=== PATIENT | female | born 1930 ===

== ENCOUNTER 2017-02-27 13:18 | Inpatient (IN) | payer MEDICARE ==
[2017-02-27] MEDS ORDERED: Sodium Chloride 0.9% 500 ML IV ONE ×2 (14:25→15:32)
[2017-02-27 14:35] LABS: VENOUS BLOOD GAS BASE EXCESS -7.3 mmol/L (0.0-2.0); VENOUS BLOOD GAS PCO2 35 mmHg (40-60); VENOUS BLOOD PH 7.32 (7.32-7.43)
--- NOTE | 2017-02-27 14:37 | RAD ---
PROCEDURE: CHEST RADIOGRAPH, 1 VIEW HISTORY: hyperglycemia, weakness COMPARISON: None available. FINDINGS: LUNGS: The lungs are clear. PLEURA: No pneumothorax or pleural fluid seen. CARDIOVASCULAR: Normal. OSSEOUS STRUCTURES: Within normal limits for the patient's age. VISUALIZED UPPER ABDOMEN: Normal. OTHER FINDINGS: None. IMPRESSION: No active pulmonary disease.
[2017-02-27 14:39] LABS: CHLORIDE 94 mmol/L (98-107); SODIUM 131 mmol/L (132-148)
[2017-02-27 14:41] LABS: BILIRUBIN,TOTAL 0.8 mg/dL (0.2-1.3); CARBON DIOXIDE 25 mmol/L (22-30); GFR AFRICAN-AMERICAN 43
[2017-02-27 14:42] LABS: ALKALINE PHOSPHATASE 100 U/L (38-126); ALT/SGPT 28 U/L (9-52); AST/SGOT 28 U/L (14-36); BLOOD UREA NITROGEN 17 mg/dL (7-17); CALCIUM 9.3 mg/dl (8.6-10.4); TOTAL PROTEIN 6.9 g/dL (6.3-8.3)
[2017-02-27 14:52] LABS: POTASSIUM 4.9 mmol/L (3.6-5.2)
[2017-02-27] MEDS ORDERED: (Novolin R) Insulin Human Regular 100 units/ml vial IV ONE (15:00)
[2017-02-27 15:02] LABS: GLUCOSE,RANDOM 619 mg/dL (65-105)
[2017-02-27] MEDS ORDERED: (Novolin R) Insulin Human Regular 100 units/ml vial ONE ×3 (15:06→23:52)
[2017-02-27 15:18] LABS: BASO % 0.7 % (0.0-2.0); EOS # 0.1 K/uL (0.0-0.7); EOS % 1.2 % (0.0-4.0); HEMATOCRIT 34.4 % (34.0-47.0); LYMPH # 1.2 K/uL (1.0-4.3); LYMPH % 18.2 % (20.0-40.0); MEAN CELL VOLUME 97.1 fL (81.0-99.0); MEAN CORPUSCULAR HEMOGLOBIN 32.2 pg (27.0-31.0); MEAN CORPUSCULAR HGB CONC 33.1 g/dL (33.0-37.0); MONO # 0.5 K/uL (0.0-0.8); MONO % 8.4 % (0.0-10.0); RED CELL DISTRIBUTION WIDTH 13.9 % (11.5-14.5); WHITE BLOOD COUNT 6.5 K/uL (4.8-10.8)
--- NOTE | 2017-02-27 15:39 | C.PDOC ---
History Of Present Illness 86 yr old female sent from Dr. Bhat's office for elevated blood sugar (> 500). Patient is insulin dependent diabetes, compliant with medication. Patient admits to polyuria. She denies chest pain, SOB, palpitations, fever, cough, abdominal pain, nausea, vomiting, abdominal pain, dysuria, extremity weakness, sensory changes, facial droop, slurred speech, visual changes. Time Seen by Provider: 02/27/17 13:46 Chief Complaint (Nursing): Weakness/Neurological Deficit History Per: Patient History/Exam Limitations: no limitations Fall Associated With With Symptoms: No Past Medical History Reviewed: Historical Data, Nursing Documentation, Vital Signs Vital Signs: Last Vital Signs Temp 97.9 F 03/06/17 07:00 Pulse 71 03/06/17 07:00 Resp 18 03/06/17 07:00 BP 165/67 H 03/06/17 11:16 Pulse Ox 98 03/06/17 07:00 - Medical History PMH: Diabetes, HTN Family History: States: No Known Family Hx - Social History Hx Alcohol Use: No Hx Substance Use: No - Immunization History Hx Tetanus Toxoid Vaccination: No Hx Influenza Vaccination: No Hx Pneumococcal Vaccination: No Review Of Systems Except As Marked, All Systems Reviewed And Found Negative. Constitutional: Negative for: Fever Cardiovascular: Negative for: Chest Pain, Palpitations Respiratory: Negative for: Cough, Shortness of Breath Gastrointestinal: Negative for: Nausea, Vomiting, Abdominal Pain Genitourinary: Positive for: Other ((+) Polyuria ). Negative for: Dysuria Neurological: Negative for: Weakness, Numbness Physical Exam - Physical Exam Appears: Well, Non-toxic, No Acute Distress Skin: Warm, Dry, No Rash Head: Normacephalic Eye(s): bilateral: Normal Inspection, PERRL, EOMI Oral Mucosa: Moist Cardiovascular: Rhythm Regular Respiratory: Normal Breath Sounds, No Rales, No Rhonchi, No Wheezing Gastrointestinal/Abdominal: Normal Exam, Bowel Sounds, Soft, No Tenderness Extremity: Normal ROM, No Pedal Edema, No Calf Tenderness, No Swelling Neurological/Psych: Oriented x3, Normal Speech, Normal Cognition, Normal Cranial Nerves, No Cerebellar Signs, Normal Motor, Normal Sensation ED Course And Treatment - Laboratory Results Result Diagrams: 03/05/17 09:19 03/05/17 07:34 ECG: Interpreted By Me, Viewed By Me (sinus rhythm 69 bpm, normal axis, no acute ST/T wave changes) ECG Interpretation: Normal O2 Sat by Pulse Oximetry: 100 (RA ) Pulse Ox Interpretation: Normal - Radiology CXR: Viewed By Me, Read By Radiologist CXR Interpretation: Yes: No Acute Disease Progress Note: PLAN: Blood work, CXR, EKG, Urinalysis ordered and reviewed. Patient given IV Ns bolus, IV insulin, PO Norvasc. - Physician Consult Information Physician Contacted: Marc Song Outcome Of Conversation: Discussed patient with Dr. Song, he agrees with admission for hyperglycemia, hypertension, elevated creatinine. Disposition - Disposition Disposition: HOSPITALIZED Disposition Time: 16:37 Condition: STABLE - Clinical Impression Clinical Impression: Creatinine elevation, Hyperglycemia, Dehydration, Hypertension - Scribe Statement The provider has reviewed the documentation as recorded by the Sukhwinder Baez Provider Attestation: All medical record entries made by the Scribe were at my direction and personally dictated by me. I have reviewed the chart and agree that the record accurately reflects my personal performance of the history, physical exam, medical decision making, and the department course for this patient. I have also personally directed, reviewed, and agree with the discharge instructions and disposition. Decision To Admit - Pt Status Changed To: Hospital Disposition Of: Inpatient - Admit Certification Admit to Inpatient:: After my assessment, the patient will require hospitalization for at least two midnights. This is because of the severity of symptoms shown, intensity of services needed, and/or the medical risk in this patient being treated as an outpatient. - InPatient: Physician Admission Certification: I certify that this patient requires 2 or more midnights of care for the following reason:: see notes - . Bed Request Type: Telemetry Admitting Physician: Marc Song Patient Diagnosis: Hyperglycemia, Dehydration, Creatinine elevation
[2017-02-27 15:41] LABS: RBC URINE < 1 /hpf (0-3); URINE BILIRUBIN NEGATIVE (NEGATIVE); URINE BLOOD NEGATIVE (NEGATIVE); URINE COLOR Colorless (YELLOW); URINE GLUCOSE (UA) 3+ mg/dL (Normal); URINE KETONE NEGATIVE (NEGATIVE); URINE LEUKOCYTE ESTERASE NEG Leu/uL (Negative); URINE PROTEIN 1+ mg/dL (NEGATIVE); URINE UROBILINOGEN NORMAL mg/dL (0.2-1.0); WBC URINE 2 /hpf (0-5)
--- NOTE | 2017-02-27 15:47 | C.PDOC ---
Time Seen by Provider: 02/27/17 13:46 Chief Complaint (Nursing): Weakness/Neurological Deficit Past Medical History Vital Signs: Last Vital Signs Temp 98.3 F 02/27/17 13:34 Pulse 74 02/27/17 13:34 Resp 20 02/27/17 13:34 BP 201/81 H 02/27/17 15:13 Pulse Ox 100 02/27/17 13:34 - Medical History PMH: HTN - Social History Hx Alcohol Use: No Hx Substance Use: No - Immunization History Hx Tetanus Toxoid Vaccination: No Hx Influenza Vaccination: No Hx Pneumococcal Vaccination: No ED Course And Treatment - Laboratory Results Result Diagrams: 02/27/17 15:11 02/27/17 14:24 O2 Sat by Pulse Oximetry: 100 Disposition - Disposition Forms: [employer] (Malawian)
[2017-02-27] MEDS ORDERED: (Novolin R) Insulin Human Regular 100 units/ml vial IV STA (16:01)
--- NOTE | 2017-02-27 20:51 | CP.PCM.HP ---
History of Present Illness - History of Present Illness History of Present Illness: CC: bs > 500 with weakness HPI: Pt is an 86-yo female who was referred to me by her health policy manager, Dr. Jeane Bhat, for possible admission after a visit at the office showed BS > 500 and pt was feeling slightly weak. Pt speaks Bengali mainly, and was using insulin at home for her DM. Pt was unaccompanied by family and took the bus to Dr. Bhat's office and pt was dropped off by her doctor at [facility] ER shortly after lunch. Later in the afternoon, I was called by ER doctor for endorsement of patient and admitting orders. When pt was evaluated by me this evening, pt had SBP in the 160s - 170s. After initially declining, pt's BS started climbing again after her regular diet dinner. Further admitting order given and all possible steps taken to prevent exacerbation of pt's medical problems. i Present on Admission - Present on Admission Any Indicators Present on Admission: No History of DVT/PE: No History of Uncontrolled Diabetes: Yes Urinary Catheter: No Decubitus Ulcer Present: No Review of Systems - Review of Systems Systems not reviewed;Unavailable: Unstable Vital Signs - Constitutional Constitutional: Anorexia, Daytime Sleepiness, Weakness Past Patient History - Infectious Disease Hx of Infectious Diseases: None - Tetanus Immunizations Tetanus Immunization: Unknown - Past Medical History & Family History Past Medical History?: Yes - Past Social History Smoking Status: Never Smoked - CARDIAC Hx Hypertension: Yes - ENDOCRINE/METABOLIC Hx Diabetes Mellitus Type 1: Yes - PSYCHIATRIC Hx Substance Use: No Meds Allergies/Adverse Reactions: Allergies Allergy/AdvReac Type Severity Reaction Status Date / Time No Known Allergies Allergy Unverified 02/27/17 13:39 Physical Exam - Constitutional Appears: No Acute Distress, Confused - Head Exam Head Exam: ATRAUMATIC, NORMAL INSPECTION, NORMOCEPHALIC - Eye Exam Eye Exam: Normal appearance Pupil Exam: NORMAL ACCOMODATION - ENT Exam ENT Exam: Mucous Membranes Dry - Neck Exam Neck exam: Positive for: Normal Inspection - Respiratory Exam Respiratory Exam: Clear to Auscultation Bilateral, NORMAL BREATHING PATTERN - Cardiovascular Exam Cardiovascular Exam: REGULAR RHYTHM - GI/Abdominal Exam GI & Abdominal Exam: Normal Bowel Sounds - Rectal Exam Rectal Exam: Deferred - Extremities Exam Extremities exam: Positive for: calf tenderness - Neurological Exam Neurological exam: Abnormal Gait (slightly unsteady), CN II-XII Intact, Oriented x3 (oriented to person and place only) - Psychiatric Exam Psychiatric exam: Manic (vs sundowning; ? dementia) - Skin Skin Exam: Dry, Intact, Normal Color, Warm Results - Vital Signs Recent Vital Signs: Last Vital Signs Temp 97.9 F 02/27/17 17:32 Pulse 72 02/27/17 17:32 Resp 18 02/27/17 17:32 BP 167/71 H 02/27/17 17:32 Pulse Ox 98 02/27/17 17:32 - Labs Result Diagrams: 02/27/17 15:11 02/27/17 21:02 Labs: Laboratory Results - last 24 hr 02/27/17 17:29 POC Glucose (mg/dL) 274 H - EKG Data EKG Interpreted by: ER Physician Rate: Normal Assessment & Plan (1) Diabetes type 2, uncontrolled Assessment and Plan: re-start pt's insulin and consult Endo as necessary museum educator to bedside as well as dietitian referral Status: Acute (2) Malignant hypertension Assessment and Plan: start on MAK/ARB IV and titrate to oral dosing Status: Acute (3) Elevated serum creatinine Assessment and Plan: monitor renal function odalis after ARB started Status: Acute (4) SunDown syndrome Assessment and Plan: reported by evening nursing staff as confusion and wandering. 1 on 1 obtained for pt safety Status: Acute Decision To Admit - Pt Status Changed To: Hospital Disposition Of: Inpatient - Admit Certification Admit to Inpatient:: After my assessment, the patient will require hospitalization for at least two midnights. This is because of the severity of symptoms shown, intensity of services needed, and/or the medical risk in this patient being treated as an outpatient. - InPatient: Physician Admission Certification:: Patient found to have very elevated BS at health policy manager's office with beginning signs of end-organ dysfunction. Pt sent to ED for evaluation and pt's diabetes was very uncontrolled and BP was at stroke levels. Pt admitted for closer monitoring, meds adjustment, diabetic and bp teaching, to prevent any long-term morbidity. - . Bed Request Type: Telemetry Admitting Physician: Marc Song
[2017-02-27 21:21] LABS: POTASSIUM 3.9 mmol/L (3.6-5.2)
[2017-02-27 21:23] LABS: ALB/GLOB RATIO 1.1 (1.0-2.1); BILIRUBIN,TOTAL 0.5 mg/dL (0.2-1.3); TOTAL PROTEIN 6.1 g/dL (6.3-8.3)
[2017-02-27 21:24] LABS: CALCIUM 8.7 mg/dl (8.6-10.4); MAGNESIUM 1.7 mg/dL (1.6-2.3)
[2017-02-27] MEDS ORDERED: Insulin Detemir 100 units/ml Vial (Levemir) SC STA (21:31)
[2017-02-27] MEDS ORDERED: Insulin Detemir 100 units/ml Vial (Levemir) SC ONE (21:39)
[2017-02-27] MEDS ORDERED: Enalaprilat 2.5 MG/2 ML ONE (23:52)
[2017-02-27] MEDS: Enalaprilat 2.5 MG/2 ML IV SCH (23:53)
[2017-02-27] MEDS: (Novolin R) Insulin Human Regular 100 units/ml vial SC SCH (23:54)
[2017-02-28] MEDS: Enalaprilat 2.5 MG/2 ML IV SCH (06:23)
[2017-02-28] MEDS: (Novolin R) Insulin Human Regular 100 units/ml vial SC SCH ×4 (08:56→22:50)
[2017-02-28] MEDS ORDERED: (Novolin 70/30) NPH/Regular 70/30 Units/ml 10 ml vial SC SCH (16:30)
[2017-02-28] MEDS ORDERED: (Lantus) Insulin Glargine, Recombinant SC SCH (22:00)
--- NOTE | 2017-02-28 23:43 | CP.PCM.PN ---
Subjective - Date & Time of Evaluation Date of Evaluation: 02/28/17 Time of Evaluation: 20:25 - Subjective Subjective: Pt's BS monitored overnight and Endo consult obtained this AM with further refinements in pt's insulin dosing. Clinically, pt's BS had been coming down with her numbers improved from admission. Pt's baseline can swing from cooperative to bored and agitated, though she could be convinced to do certain things when cajoled into it. Labs ordered for AM by Endo. Objective - Vital Signs/Intake and Output Vital Signs (last 24 hours): Temp Pulse Resp BP Pulse Ox 97.9 F 80 23 157/67 H 87 L 02/28/17 20:00 02/28/17 20:44 02/28/17 04:00 02/28/17 20:44 02/28/17 20:44 Intake and Output: 02/28/17 03/01/17 18:59 06:59 Intake Total 1440 Balance 1440 - Medications Medications: Current Medications Aspirin (Aspirin Chewable) 81 mg PO DAILY [facility] Last Admin: 02/28/17 09:58 Dose: 81 mg Enalaprilat (Vasotec) 2.5 mg IV Q8 [facility] Last Admin: 02/28/17 06:23 Dose: Not Given Heparin Sodium (Porcine) (Heparin) 5,000 units SC Q12 [facility] Last Admin: 02/28/17 22:54 Dose: 5,000 units Insulin Glargine (Lantus) 14 unit SC HS [facility] Last Admin: 02/28/17 22:54 Dose: 14 units Insulin Human Isoph/Insulin Regular (Novolin 70/30 (70/30 Units/Ml) 10 Ml) 24 units SC ACB FALGUNI Insulin Human Isoph/Insulin Regular (Novolin 70/30 (70/30 Units/Ml) 10 Ml) 16 units SC ACD [facility] Last Admin: 02/28/17 16:55 Dose: 16 units Insulin Human Regular (Novolin R) 0 unit SC ACHS [facility] PRN Reason: Protocol Last Admin: 02/28/17 22:50 Dose: Not Given Losartan Potassium (Cozaar) 50 mg PO DAILY [facility] Last Admin: 02/28/17 09:58 Dose: 50 mg Losartan Potassium (Cozaar) 25 mg PO DAILY [facility] Last Admin: 02/28/17 20:30 Dose: 25 mg Pneumococcal Polyvalent Vaccine (Pneumovax 23 Vaccine) 0.5 ml IM .ONCE ONE Stop: 03/02/17 10:01 - Labs Labs: 02/27/17 21:02 - Constitutional Appears: No Acute Distress - Head Exam Head Exam: NORMAL INSPECTION, NORMOCEPHALIC - Eye Exam Eye Exam: Normal appearance Pupil Exam: NORMAL ACCOMODATION - ENT Exam ENT Exam: Mucous Membranes Moist - Neck Exam Neck Exam: Full ROM, Normal Inspection - Respiratory Exam Respiratory Exam: Clear to Ausculation Bilateral, NORMAL BREATHING PATTERN - Cardiovascular Exam Cardiovascular Exam: REGULAR RHYTHM - GI/Abdominal Exam GI & Abdominal Exam: Normal Bowel Sounds - Rectal Exam Rectal Exam: Deferred - Extremities Exam Extremities Exam: Normal Inspection - Back Exam Back Exam: NORMAL INSPECTION - Neurological Exam Neurological Exam: Normal Gait, Oriented x3 (oriented to person and place only) Neuro motor strength exam: Left Upper Extremity: 4, Right Upper Extremity: 4, Left Lower Extremity: 3, Right Lower Extremity: 3 - Psychiatric Exam Psychiatric exam: Normal Affect, Normal Mood - Skin Skin Exam: Dry, Intact, Normal Color, Warm Assessment and Plan (1) Diabetes type 2, uncontrolled Assessment & Plan: continue titration of insullin coupled with diabetic education Status: Acute (2) Malignant hypertension Assessment & Plan: BP much iimproved and appears to be staying within tolerable limits although not ideal. Suspect pt is used to having very high pressures and immediate decrease of BP may be more detrimental to pt than a gradual decline. Will continue to follow. Status: Acute (3) Elevated serum creatinine Assessment & Plan: for re-evaluation in AM Status: Acute (4) SunDown syndrome Assessment & Plan: continue 1-1 as necessary Status: Acute
--- NOTE | 2017-03-01 01:06 | CON ---
ENDOCRINOLOGY CONSULT DATE: 02/28/2017 LOCATION: In ICU, room 9. HISTORY OF PRESENT ILLNESS: This is an 86-year-old female with known history of type 2 insulin-requiring diabetes, presented to my office yesterday for a routine visit and was found to have glucose levels over 500 by the glucose meter in the office and collaborated by a lab glucose report of 626 mg/dL. She also admitted to marked hypersomnolence and progressive dizziness and lightheadedness with lower extremity weakness and thus was strongly advised for urgent admission to the hospital. Since she had no access to transportation, I personally dropped off the patient to [facility] Emergency Room for evaluation and eventual management. She is on a combination of Humulin regular insulin given as 20 units b.i.d. with food, NPH given as 30 units every morning at bedtime. PAST MEDICAL HISTORY: As mentioned, history of type 2 insulin-requiring diabetes with the above-mentioned regimen, history of hypertension and dyslipidemia. Apparently, the patient was on two kinds of hypertension medications, but she has stopped taking the medications for unknown reasons. History of hypothyroidism, currently on levothyroxine given as 150 mcg daily but also admits to very poor adherence and compliance. History of generalized osteoporosis and has been receiving Prolia injections at 60 mg every 6 months as given. FAMILY HISTORY: Positive for hypertension and diabetes. SOCIAL HISTORY: Patient is a and at this time lives alone. They have no children, but she has nephews and nieces and also brothers in [place]. She has a close friend living in the same apartment complex building. REVIEW OF SYSTEMS: As mentioned above, admits to generalized body weakness with easy fatigability and tiredness and suboptimal energy level, also admits to increasing hypersomnolence, and this was witnessed by her apartment friend who said that she had been sleeping over 12 hours on a day to day basis. Also admits to progressive dizziness and lightheadedness, worse on the day of admission. No chest pain, palpitations or PNDs. Her oral intake has been variable with nausea, dyspepsia and vague upper abdominal pain. Also admits to marked polyuria, nocturia and polydipsia and about a 5-pound or so weight loss. Also has occasional constipation as noted. PHYSICAL EXAMINATION GENERAL: This is female in no apparent distress. VITAL SIGNS: Blood pressure 170/80, pulse of 70 beets per minute and regular, temperature 98, respirations 20. Height is 4 feet 11 inches and weight is 130 pounds. HEENT: Head is normocephalic. Eyes anicteric with pink conjunctivae. Funduscopy not possible at this time. Ears, nose, and throat otherwise normal. NECK: Supple. Thyroid gland is normal size. No carotid bruits or cervical adenopathy. CARDIOPULMONARY: Adynamic precordium. S1 and S2 are rapid and regular. LUNGS: Shows scattered rhonchi. ABDOMEN: Flat and soft with positive bowel sounds. EXTREMITIES: No peripheral edema. Pulses are +2 bilaterally. LABORATORY DATA: Initial chemistry showed a BUN of 17, sodium 131, potassium 4.9, chloride 94, CO2 of 25, glucose 619, and creatinine 1.4. Glucose level since admission have ranged from 311 to 432 and over 500 mg/dL. ASSESSMENT: This is an 86-year-old female with uncontrolled and decompensated type 2 insulin-requiring diabetes with marked hyperglycemic accelerations and presenting here with hyperosmolar hyperglycemic state and dehydration with spurious hypometria. There is also a significant factor of early senile dementia with increased lapses of forgetfulness and memory loss and the possibility of not being able to give her insulin dose regimen on a day to day basis is clearly of question at this time and may be a contributing factor to the recent hyperglycemic accelerations. PLAN: Plan of management is discussed with primary physician and also the patient at bedside. We will initiate a different kind of insulin regimen since her insurance company has only covered the old conventional regular and NPH insulin till the present time. However, at this time, we will empirically start her on a combination of a pre-mixed insulin regimen with basal insulin regimen as ordered. We will start her with Novolin 70/30 which is actually cheaper and more affordable at the dose of 24 units a.c. breakfast and 16 units a.c. dinner to start today. We will also add Lantus as basal insulin overnight to be given as 14 units subcu at bedtime daily as ordered. We will titrate incrementally as indicated to optimize metabolic control. We will go ahead with public health social worker referral and also for the safety of discharge with apparent increasing senile dementia as provided. We will obtain a hemoglobin A1c to glycemic control and repeat the thyroid studies and adjust the dose regimen accordingly. We will also obtain serial chemistries and supplement accordingly as needed and continue the IV hydration as ordered at this time. We will follow and advise accordingly. Haley Bhat MD
[2017-03-01] MEDS: Rosuvastatin Calcium 2.5 mg Tab PO SCH ×2 (02:30→22:00)
--- NOTE | 2017-03-01 05:10 | CON ---
DATE: 02/28/2017 CHIEF COMPLAINT/REASON FOR CONSULTATION: The patient was referred by Dr. Song for evaluation of decisional capacity as this patient has periods of confusion. The patient is admitted here for uncontrolled diabetes and periods of confusion, but when seen today, she was doing much better. Coherent and responding to question. HISTORY OF PRESENT ILLNESS: The patient is an 86-year-old female of descent and seen by Prepleater Dr. Cardona for elevated blood sugar greater than 500. The patient has history of insulin-dependent diabetes and is compliant with the medication. The patient was admitted here for uncontrolled diabetes and periods of confusion. Today, she is 1:1 watch for safety, but her mental status seems to be much better. Her blood sugar is now improved, around 257. Her Hgb A1c is 12.4. The patient states that she lives by herself and she has no homemaker at home. She has 3 children, but they are in [place] and the other one is in [place]. PAST MEDICAL HISTORY: Denies any medical history as stated. History of diabetes, hypertension. DRUG/ALCOHOL HISTORY: Denies. ALLERGIES: THE PATIENT HAS NO KNOWN ALLERGIES. 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 The patient lives by herself. MEDICATION: Losartan, aspirin, Lantus insulin, Novolin, Pneumovax, Vasotec. PHYSICAL EXAMINATION VITAL SIGNS: Temperature is 97.9, pulse rate is 79, blood pressure is 164/65, respirations 23, and oxygen saturations is 97%. REVIEW OF SYSTEMS: GENERAL: The patient is alert and oriented x3 and 1:1 watch. Doing much better and states she is not crazy._. SKIN: No diaphoresis. HEENT: No headache. No dizziness. NECK: Supple. RESPIRATORY: No dyspnea. CARDIOVASCULAR: No chest pain. GASTROINTESTINAL: She is eating well. EXTREMITIES: The patient move extremities. No tremors. MUSCULOSKELETAL: Feels weak. NEUROLOGIC: Alert and oriented x3 with some periods of confusion, but resolving. GENITOURINARY: No dysuria. MENTAL STATUS EXAMINATION: Elderly female of descent, oriented x3. Speech is spontaneous. Conversing in Belarusian. Affect is reactive. Mood is dysphoric. Thought process is coherent. Thought content,no psychosis. No suicidal or homicidal ideation. I did ask the patient if she wants some home medicare service at her home and she states she will try to get one, but patient needs to apply for Medicaid as patient saba not have Medicaid. No paranoia and no hallucination, or suicidal ideation. Attention and memory seems to be improving. Insight and judgment improving. Impulse control is fair at this time IMPRESSION: Delirium, metabolic encephalopathy secondary to uncontrolled diabetes. PLAN AND RECOMMENDATION: The patient seen, medications reviewed, and continue present management. We will hold up any psychiatry medications for now. We will her monitor blood sugar. The patient at this time her mental status is improving. The patient still has decisional capacity to make decisions for her medical as well as financial care. This will be good if we involve the children and I also the family can assist her to get the Medicaid to get some home care services at home. The patient needs to monitored especially that if her blood sugars are uncontrolled, it can cause some confusion as side effect especially with a very liable blood sugar status. Dereck Ford MD MTDD
[2017-03-01] MEDS ORDERED: Enalaprilat 2.5 MG/2 ML IV ONE (05:12)
[2017-03-01 07:09] LABS: ALB/GLOB RATIO 1.1 (1.0-2.1); BILIRUBIN,TOTAL 0.3 mg/dL (0.2-1.3); CALCIUM 9.3 mg/dl (8.6-10.4); POTASSIUM 3.9 mmol/L (3.6-5.2)
[2017-03-01 07:24] LABS: T4 4.92 ug/dL (5.5-11.0)
[2017-03-01] MEDS ORDERED: (Novolin 70/30) NPH/Regular 70/30 Units/ml 10 ml vial SC SCH (07:30)
[2017-03-01] MEDS: (Novolin R) Insulin Human Regular 100 units/ml vial SC SCH ×4 (08:57→22:00)
[2017-03-01 08:59] LABS: THYROID STIMULATING HORMONE 10.6 mIU/L (0.46-4.68)
--- NOTE | 2017-03-01 11:53 | CP.PCM.PN ---
Subjective - Date & Time of Evaluation Date of Evaluation: 03/01/17 Time of Evaluation: 11:47 - Subjective Subjective: Pt is still very unsteady on her feet, despite improving clinical picture. Pt's BP is still running high and with a diabetic diet, pt's BS this AM was in the 200s. Discussed pt with nurse on duty today and says that 1-1 watch good for pt as she will likely fall. Pt also has episodes of confusion and I doubt that she will be able to handle the complexity an insulin regimen without supervision from relatives. Objective - Vital Signs/Intake and Output Vital Signs (last 24 hours): Temp Pulse Resp BP Pulse Ox 98.7 F 67 15 156/65 H 97 03/01/17 08:00 03/01/17 08:08 03/01/17 08:08 03/01/17 08:08 03/01/17 08:08 Intake and Output: 03/01/17 03/01/17 06:59 18:59 Intake Total 400 Output Total 300 Balance 100 - Medications Medications: Current Medications Aspirin (Aspirin Chewable) 81 mg PO DAILY [facility] Last Admin: 03/01/17 09:34 Dose: 81 mg Heparin Sodium (Porcine) (Heparin) 5,000 units SC Q12 [facility] Last Admin: 03/01/17 09:35 Dose: 5,000 units Insulin Glargine (Lantus) 14 unit SC HS [facility] Last Admin: 02/28/17 22:54 Dose: 14 units Insulin Human Isoph/Insulin Regular (Novolin 70/30 (70/30 Units/Ml) 10 Ml) 24 units SC ACB [facility] Last Admin: 03/01/17 09:05 Dose: 24 units Insulin Human Isoph/Insulin Regular (Novolin 70/30 (70/30 Units/Ml) 10 Ml) 16 units SC ACD [facility] Last Admin: 02/28/17 16:55 Dose: 16 units Insulin Human Regular (Novolin R) 0 unit SC ACHS [facility] PRN Reason: Protocol Last Admin: 03/01/17 08:57 Dose: Not Given Levothyroxine Sodium (Synthroid) 88 mcg PO DAILY@0630 [facility] Losartan Potassium (Cozaar) 50 mg PO DAILY [facility] Last Admin: 03/01/17 09:34 Dose: 50 mg Losartan Potassium (Cozaar) 50 mg PO DAILY@1800 [facility] Losartan Potassium (Cozaar) 100 mg PO DAILY [facility] Pneumococcal Polyvalent Vaccine (Pneumovax 23 Vaccine) 0.5 ml IM .ONCE ONE Stop: 03/02/17 10:01 Rosuvastatin Calcium (Crestor) 2.5 mg PO HS [facility] Last Admin: 03/01/17 02:30 Dose: 2.5 mg - Labs Labs: 03/01/17 06:47 - Constitutional Appears: No Acute Distress - Head Exam Head Exam: NORMAL INSPECTION - Eye Exam Eye Exam: Normal appearance - ENT Exam ENT Exam: Normal Exam - Neck Exam Neck Exam: Normal Inspection - Respiratory Exam Respiratory Exam: Clear to Ausculation Bilateral - Cardiovascular Exam Cardiovascular Exam: REGULAR RHYTHM - GI/Abdominal Exam GI & Abdominal Exam: Normal Bowel Sounds - Rectal Exam Rectal Exam: Deferred - Back Exam Back Exam: NORMAL INSPECTION - Neurological Exam Neurological Exam: Abnormal Gait, Alert, Oriented x3 (to time and place only) Neuro motor strength exam: Left Upper Extremity: 4, Right Upper Extremity: 3, Left Lower Extremity: 3, Right Lower Extremity: 3 - Psychiatric Exam Psychiatric exam: Agitated (pleasant demeanor but changes quickly) - Skin Skin Exam: Dry, Intact, Normal Color, Warm Assessment and Plan (1) Diabetes type 2, uncontrolled Assessment & Plan: on long acting and combo 70/30 mi insulin. Pt toerating regimen, with BS decreased to the low 100s prior to bedtime. Pt being given add'l snacks to prevent her from bottoming out, but will eventually need to decrease one of her insulins to prevent hypoglycemic episodes. Status: Acute (2) Malignant hypertension Assessment & Plan: BP in the tolerable range of 160s as of 3 pm. ARB dose increased for the evening to maximize dosing and once daily dosing to start tomorrow. After reading Endo notes re: pt encoutner and apparent baseline funcitoning, will order CT scan of the brain Status: Acute (3) Elevated serum creatinine Assessment & Plan: appears to be improving will continue to monitor Status: Acute (4) SunDown syndrome Assessment & Plan: may be 2ndry to new neurologic issues discovered, will make sure all services aware of this finding. Status: Acute (5) CVA (cerebral vascular accident) Assessment & Plan: wedge infarct at L cerebellar cerebellar and left lentiform nucleus, bilateral thalami at caudate nuclei, at krause radiata and central semiovale==consult Neurology for further mgt. Status: Acute (6) Confusion Assessment & Plan: could be 2ndry to multiple CVAs. Neuro consult ordered Status: Acute
[2017-03-01] MEDS: (Novolin 70/30) NPH/Regular 70/30 Units/ml 10 ml vial SC SCH (17:08)
--- NOTE | 2017-03-01 20:30 | PN ---
DATE: 03/01/2017 SUBJECTIVE: The patient is seen. She is doing little bit better. Her blood sugar still around 200 range. The patient one-to-one for safety because she still has some periods of confusion, but no major behavior problems. Review of her labs, her T4 is 4.92 and her TSH third-generation is elevated 10.60. The patient is not taking any psych medication at this time. Her creatinine is 1.3. PHYSICAL EXAMINATION: VITAL SIGNS: Temperature is 98.7, pulse rate 70, blood pressure 168/65, respirations 21, oxygen sat is 98%. The patient reports that she is interested to get some home care services at home because her daughter who lives in [place] and her son lives in [place] and not visiting her regularly. The patient also is wondering why her sugar is very elevated. REVIEW OF SYSTEMS: GENERAL: The patient is alert, verbal, coherent, seen to be one-to-one watch in ICU. SKIN: No diaphoresis. HEENT: No headache. No dizziness. NECK: Supple. RESPIRATORY: No dyspnea. CARDIOVASCULAR: No chest pain. GASTROINTESTINAL: The patient is eating well. EXTREMITIES: The patient moves extremities. MUSCULOSKELETAL: Feels weak. NEUROLOGIC: Alert and oriented x3. GENITOURINARY: No dysuria. MENTAL STATUS EXAMINATION: Elderly female who looks stated age, about 4 feet 11 inches, 130 pounds, oriented x3. Mood is calm. Affect is reactive. Speech is spontaneous. Thought process, coherent. Thought content, no overt psychosis. No suicidal or homicidal ideation. Attention and memory improving. Insight and judgment improving. Impulse control is fair at this time. IMPRESSION: Delirium, metabolic encephalopathy secondary to uncontrolled diabetes. PLAN AND RECOMMENDATION: The patient is seen, meds reviewed. Continue present management. Monitor blood sugar. We will hold off any psych meds for now. The patient will benefit from subacute rehab once is medically cleared; however, I do suggest that the patient may benefit from having home care services at home. The patient needs to be monitored, especially her blood sugar level and also visiting nurse to check with her from time to time. Dereck Ford MD [facility] # [id number] MTDD
--- NOTE | 2017-03-01 20:45 | PN ---
ENDO FOLLOWUP NOTE DATE LOCATION: The patient is in ICU, room 9. SUBJECTIVE: This is an [id number] with recent uncontrolled type 2 insulin-requiring diabetes presenting here with marked hyperglycemic accelerations and hyperosmolar hyperglycemic state and dehydration and is now being followed closely for metabolic management. She also had accelerated malignant range hypertension and is currently being followed in the ICU for closer hemodynamic monitoring and cardiac management. Her glycemia level are fluctuating, but improved and the latest chemistries showed BUN of 15, sodium 137, potassium 3.9, chloride 103, CO2 of 24, glucose 105, and creatinine 1.3. Her glucose values have ranged from 205 to 296 mg/dL today as noted. Her thyroid studies showed T4 of 4.92 with a TSH of 10.60 clearly indicative of overt hypothyroidism as noted thereof. She has been started on levothyroxine given as 88 mcg once daily as ordered, so at this time, we will modify once again her basal and bolus insulin regimen and increase the Novolin 70/30 to 30 units before breakfast and 20 units before dinner to start tonight. We will also increase the basal insulin given as Lantus at 16 units subQ at bedtime daily as given. We will titrate incremental as indicated to optimize metabolic control. We will also continue the low-dose correctional scale using regular insulin as given. We will titrate incrementally as indicated to optimize metabolic control. We will also continue the serial chemistries and supplement accordingly as needed. We will follow. Haley Bhat MD
--- NOTE | 2017-03-01 21:40 | CT ---
EXAM: CT Head Without Intravenous Contrast EXAM DATE/TIME: Exam ordered 03/01/2017 11:39 AM CLINICAL HISTORY: 86 years old, female; Signs and symptoms; Other: Change in mental status; Additional info: HX of weakness and change in mental status TECHNIQUE: Axial computed tomography images of the head/brain without intravenous contrast. All CT scans at this facility use one or more dose reduction techniques, viz.: automated exposure control; ma/kV adjustment per patient size (including targeted exams where dose is matched to indication; i.e. head); or iterative reconstruction technique. COMPARISON: No relevant prior studies available. FINDINGS: Brain: Low-density is noted within the periventricular white matter extending into the krause radiata and centrum semiovale bilaterally. A focal area of low density is noted within the left lentiform nucleus measuring 8 mm. Low density foci are noted within the thalami bilaterally. They measure proximally 4 mm each. A wedge-shaped defect is noted within the left cerebellar hemisphere. It measures 1.7 cm in maximum diameter. A punctate hyperdense focus is noted within the head of the left caudate. This could represent a calcification or petechial hemorrhage. No edema. Ventricles: Unremarkable. No ventriculomegaly. Bones/joints: Unremarkable. No acute fracture. Soft tissues: Unremarkable. Vasculature: Sinuses: Unremarkable as visualized. No acute sinusitis. Mastoid air cells: Unremarkable as visualized. No mastoid effusion. Orbits: Postsurgical changes are noted in the globes bilaterally. IMPRESSION: 1. Wedge-shaped area of low density representing an infarct noted in the left cerebellar hemisphere. No mass effect on the fourth ventricle. The age is uncertain. MRI with diffusion imaging would be helpful if clinically relevant. 2. Lacunar infarcts noted within the thalami bilaterally, the left lentiform nucleus. The age is uncertain. 3. 3 mm punctate area of increased density noted within the head of the left caudate. This could represent calcification or a small petechial hemorrhage. MRI might be helpful. Alternatively followup CT examination in 4-6 hours might be considered. 4. Advanced chronic microvascular ischemic change in the deep white matter structures.
[2017-03-01] MEDS: (Lantus) Insulin Glargine, Recombinant SC SCH (22:00)
[2017-03-02] MEDS: Levothyroxine 88 MCG TAB PO SCH (06:54)
[2017-03-02 06:56] LABS: BASO # 0.1 K/uL (0.0-0.2); BASO % 0.6 % (0.0-2.0); EOS # 0.2 K/uL (0.0-0.7); EOS % 1.9 % (0.0-4.0); HEMATOCRIT 42.2 % (34.0-47.0); LYMPH # 2.1 K/uL (1.0-4.3); LYMPH % 20.6 % (20.0-40.0); MEAN CELL VOLUME 97.2 fL (81.0-99.0); MEAN CORPUSCULAR HEMOGLOBIN 31.4 pg (27.0-31.0); MEAN CORPUSCULAR HGB CONC 32.3 g/dL (33.0-37.0); MEAN PLATELET VOLUME 11.3 fL (7.2-11.7); MONO # 0.9 K/uL (0.0-0.8); RED CELL DISTRIBUTION WIDTH 13.8 % (11.5-14.5); WHITE BLOOD COUNT 10.3 K/uL (4.8-10.8)
[2017-03-02 07:13] LABS: ALB/GLOB RATIO 1.2 (1.0-2.1); BILIRUBIN,TOTAL 0.4 mg/dL (0.2-1.3); CALCIUM 9.8 mg/dl (8.6-10.4); POTASSIUM 4.2 mmol/L (3.6-5.2); TOTAL PROTEIN 6.8 g/dL (6.3-8.3)
[2017-03-02] MEDS: (Novolin R) Insulin Human Regular 100 units/ml vial SC SCH ×4 (07:30→22:03)
[2017-03-02 07:42] LABS: THYROID STIMULATING HORMONE 13.2 mIU/L (0.46-4.68)
[2017-03-02] MEDS: (Novolin 70/30) NPH/Regular 70/30 Units/ml 10 ml vial SC SCH ×2 (08:56→17:30)
[2017-03-02] MEDS: Calcium-Vit D 250 mg-125 Units Tab UD PO SCH ×2 (09:42→22:29)
[2017-03-02] MEDS ORDERED: Pneumococcal 23-Valent Vaccine IM ONE (10:00)
--- NOTE | 2017-03-02 15:25 | PN ---
ENDO FOLLOWUP NOTE LOCATION: ICU, room 9. SUBJECTIVE: This is an 86-year-old female with recent uncontrolled type 2 insulin-requiring diabetes, now being followed closely for metabolic management. Her oral intake is quite variable as per the nursing staff and glycemic levels are fluctuating but improved as noted. Her glucose levels today have ranged from 188 to 231 mg/dL. It was 65 to 102 and 194 last night as noted. The latest chemistry showed a BUN of 16, sodium 136, potassium 4.2, chloride 102, CO2 of 21, glucose 205, and creatinine 1.3. So, at this time, we will continue the same premixed insulin regimen as given with Novolin 70/30 given as 30 units a.c. breakfast and 20 units a.c. dinner as ordered. We will also continue the basal insulin given as Lantus at 16 units subcutaneous at bedtime daily as ordered. We will titrate incrementally as indicated to optimize metabolic control. We are also awaiting the psychiatric evaluation for competency of the patient as noted. She has increasing lapses of forgetfulness and memory loss and the biggest concern is her safety at home with regards to insulin self-administration and dose adjustments accordingly. She lives alone at this time with no close family member to supervise her current insulin dosing regimen. We will follow and advise accordingly as needed. Haley Bhat MD
--- NOTE | 2017-03-02 17:53 | CARD ---
APPROVED REPORT EKG Measurement Heart [id number] <Conclusion> Normal sinus rhythm Nonspecific T wave abnormality Abnormal ECG
[2017-03-02] MEDS: Rosuvastatin Calcium 2.5 mg Tab PO SCH (22:27)
[2017-03-02] MEDS: (Lantus) Insulin Glargine, Recombinant SC SCH (22:28)
--- NOTE | 2017-03-02 23:50 | CP.PCM.PN ---
Subjective - Date & Time of Evaluation Date of Evaluation: 03/02/17 Time of Evaluation: 10:15 - Subjective Subjective: Pt transferred to T after a brief stay at ICU though not at ICU level of care ( Telemetry). Pt's meds being adjusted and consults obtained as appropriate. Awaitnig Neuro input on newly diagnosed multiple CVAs, presumably subacute if not old, per MRI of 03/01/2017. Pt for multiple tests today, partly in response to very significant events that had occurred as shown by CT that pt had not reported. Full work up in progress. Objective - Vital Signs/Intake and Output Vital Signs (last 24 hours): Temp Pulse Resp BP Pulse Ox 98.6 F 77 20 168/66 H 100 03/02/17 16:35 03/02/17 16:35 03/02/17 16:35 03/02/17 16:35 03/02/17 02:47 Intake and Output: 03/02/17 03/03/17 18:59 06:59 Intake Total 480 Balance 480 - Medications Medications: Current Medications Amlodipine Besylate (Norvasc) 2.5 mg PO QPM [facility] Last Admin: 03/02/17 18:55 Dose: 2.5 mg Aspirin (Aspirin Chewable) 81 mg PO DAILY [facility] Last Admin: 03/02/17 09:42 Dose: 81 mg Calcium/Vitamin D (Oscal-D 250 Mg-125 Units Tab) 2 tab PO BID [facility] Last Admin: 03/02/17 22:29 Dose: 2 tab Heparin Sodium (Porcine) (Heparin) 5,000 units SC Q12 [facility] Last Admin: 03/02/17 22:27 Dose: 5,000 units Insulin Glargine (Lantus) 16 unit SC HS [facility] Last Admin: 03/02/17 22:28 Dose: 16 units Insulin Human Isoph/Insulin Regular (Novolin 70/30 (70/30 Units/Ml) 10 Ml) 30 units SC ACB [facility] Last Admin: 03/02/17 08:56 Dose: 30 units Insulin Human Isoph/Insulin Regular (Novolin 70/30 (70/30 Units/Ml) 10 Ml) 20 units SC ACD [facility] Last Admin: 03/02/17 17:30 Dose: 20 units Insulin Human Regular (Novolin R) 0 unit SC ACHS [facility] PRN Reason: Protocol Last Admin: 03/02/17 22:03 Dose: Not Given Levothyroxine Sodium (Synthroid) 88 mcg PO DAILY@0630 [facility] Last Admin: 03/02/17 06:54 Dose: 88 mcg Losartan Potassium (Cozaar) 100 mg PO DAILY [facility] Last Admin: 03/02/17 09:42 Dose: 100 mg Rosuvastatin Calcium (Crestor) 2.5 mg PO HS [facility] Last Admin: 03/02/17 22:27 Dose: 2.5 mg - Labs Labs: 03/02/17 06:48 03/02/17 06:48 - Constitutional Appears: No Acute Distress - Head Exam Head Exam: ATRAUMATIC, NORMAL INSPECTION - Eye Exam Eye Exam: Normal appearance Pupil Exam: NORMAL ACCOMODATION - ENT Exam ENT Exam: Normal Exam - Neck Exam Neck Exam: Full ROM - Respiratory Exam Respiratory Exam: Clear to Ausculation Bilateral, NORMAL BREATHING PATTERN - Cardiovascular Exam Cardiovascular Exam: REGULAR RHYTHM - GI/Abdominal Exam GI & Abdominal Exam: Normal Bowel Sounds - Rectal Exam Rectal Exam: Deferred - Extremities Exam Extremities Exam: Normal Inspection - Back Exam Back Exam: NORMAL INSPECTION - Neurological Exam Neuro motor strength exam: Left Upper Extremity: 4, Right Upper Extremity: 3, Left Lower Extremity: 4, Right Lower Extremity: 3 - Skin Skin Exam: Diaphoretic, Dry, Normal Color, Warm Assessment and Plan (1) Diabetes type 2, uncontrolled Assessment & Plan: continue dose adjustments per Endo. Would once a week injections be better for pt since she is alone at home ? Status: Acute (2) Malignant hypertension Assessment & Plan: resistant hypertension with systolic mainly hovering i the 150s. continue dose adjustments. 2D eco and srtress tests ordered, plus roune MRI Status: Acute (3) Elevated serum creatinine Assessment & Plan: on ARB Status: Acute (4) SunDown syndrome Assessment & Plan: may be symptom of pt's CVA, but agree with Psych to hold centrally active meds Status: Acute (5) CVA (cerebral vascular accident) Assessment & Plan: for MRI today? Status: Acute (6) Confusion Assessment & Plan: CVA lesions + location may be contributory, therefore vascular dementia may be significant factor Status: Acute
--- NOTE | 2017-03-03 04:12 | CON ---
DATE: ATTENDING PHYSICIAN: Dr. Song. REASON FOR CONSULTATION: Questionable CVA. HISTORY OF PRESENT ILLNESS: The patient is an 86-year-old right-handed lady with past medical history of insulin-dependent diabetes mellitus, hypertension, cataract surgery. The patient was admitted because of the hyperglycemia. The patient was seen by Dr. Bhat in the office and found that her blood sugar was 500 and the patient was sent to emergency room at [facility] for possible admission and the patient had a CAT scan of the brain and CAT scan was abnormal. Neuro consult was consulted for evaluation. Although, the patient denies any weakness of upper or lower extremities, no numbness, no tingling. Initially, the patient was confused. Currently, this is her baseline as per her friend who came to visit her. PAST MEDICAL HISTORY: As mentioned above. SOCIAL HISTORY: Does not smoke, ethanol or drug abuser. ALLERGIES: NO KNOWN ALLERGIC REACTIONS TO MEDICATIONS. MEDICATIONS: The patient's medications; aspirin, losartan, rosuvastatin, heparin, insulin, amlodipine, calcium, levothyroxine. SURGICAL HISTORY: Bilateral cataract surgery. PHYSICAL EXAMINATION VITAL SIGNS: Blood pressure 167/71, pulse 72, respirations 18, temperature afebrile. MENTAL STATUS EXAMINATION: The patient is alert, awake, and oriented x3. Normal naming, repetition and comprehension. No agnosia, no apraxia. No right to left confusion. No finger agnosia. Slightly decreased attention span, short term memory, and slow mental processing. CRANIAL NERVES EXAMINATION: Pupils are symmetric and reactive. No facial asymmetry. No field defect. Tongue midline. Gag intact. Accessory nerve intact. Motor: Normal tone in upper extremities. No facial droop. No tremors, action, rest, or postural. No myoclonus. Upper extremity deltoid, elbow youth liaison officer 5/5. Lower extremities; hip flexion, knee flexion and extension, ankle dorsiflexion, plantar flexion 5/5. Deep tendon reflexes 1 in upper extremities, absent in the knees and ankles. Plantar flexion on both sides. SENSORY: Pinprick, light touch, symmetrical. Coordination and [id number] intact. DIAGNOSTIC DATA: CAT scan of the brain consistent with left cerebral infarct, most likely old lacunar infarct, also near the thalamus bilaterally and left lentiform nucleus. A 3 mm punctuate area of increased density noted within the head of left caudate, this could represent calcification. I doubted if there is any bleed. IMPRESSION: The patient's mild confusion is most likely secondary to her hyperglycemia, I doubt if it has anything to do with the findings on the CAT scan of the brain. We will do MRI with diffusion weighted imaging to rule out acute cerebrovascular accident. The findings on CAT scan are old, to me it looks old, after reviewing the CAT scan. In addition, the patient has periventricular white matter disease. We will do MRI of the brain and carotid Doppler EEG. Continue aspirin for now. Thank you for the consultation and Dr. Song will follow up the patient tomorrow. Anival Hess MD
--- NOTE | 2017-03-03 05:12 | PN ---
DATE: 03/02/2017 SUBJECTIVE: The patient, since she is doing better medically, she was transferred from ICU to regular floor and she was seen today with a friend. The patient still has unsteady gait and on one to one watch for safety. Likewise, she is doing much better. The patient states that she is interested of getting home care services at home as well as may be visiting nurse, but she has agreed to go for subacute rehab as her gait is unsteady. The patient needs to apply for Medicaid as patient has no Medicaid at this time. OBJECTIVE: VITAL SIGNS: Temperature 97.6, pulse rate is 77, blood pressure 167/67, respirations is 23 and oxygen saturation is 100%. REVIEW OF SYSTEMS: GENERAL: The patient is alert, oriented x3. She is seen in her room, she was eating her lunch. Pleasant in approach. Not in any acute respiratory distress. HEENT: No headache. No dizziness. NECK: Supple. RESPIRATORY: No dyspnea. CARDIOVASCULAR: No chest pain. GASTROINTESTINAL: She is eating better. EXTREMITIES: The patient has unsteady gait. MUSCULOSKELETAL/NEUROLOGIC: Alert and oriented x3, and clinically improved. GENITOURINARY: No dysuria. LABORATORY DATA: On review of her labs, her blood sugar is much better. Her random blood sugar today is 205; although, the highest level noted was 367. MENTAL STATUS EXAMINATION: Elderly female, who looks stated age, alert, oriented x3. Mood is calm. Affect is reactive. Speech is spontaneous, conversing in Greenlandic. Thought process is coherent. Thought content, no overt psychosis. No suicidal ideation. Attention and memory seems to be fair. Insight and judgment is fair. Impulse control is fair. IMPRESSION: Delirium, metabolic encephalopathy secondary to uncontrolled diabetes. PLAN AND RECOMMENDATION: The patient seen, medications reviewed, continue present management. Hold up her psych medicines for now. The patient would benefit from subacute rehab. The issue with the patient is that patient will need services at home specially when she is getting insulin. Dereck Ford MD [facility]
[2017-03-03] MEDS: Levothyroxine 88 MCG TAB PO SCH (06:33)
[2017-03-03 07:35] LABS: BASO # 0.2 K/uL (0.0-0.2); BASO % 1.9 % (0.0-2.0); EOS # 0.2 K/uL (0.0-0.7); EOS % 1.3 % (0.0-4.0); HEMATOCRIT 41.7 % (34.0-47.0); LYMPH # 3.4 K/uL (1.0-4.3); LYMPH % 27.1 % (20.0-40.0); MEAN CELL VOLUME 97.4 fL (81.0-99.0); MEAN CORPUSCULAR HEMOGLOBIN 31.2 pg (27.0-31.0); MEAN PLATELET VOLUME 10.9 fL (7.2-11.7); MONO % 7.8 % (0.0-10.0); NRBC % 0.1 % (0.0-2.0); RED CELL DISTRIBUTION WIDTH 14.3 % (11.5-14.5); WHITE BLOOD COUNT 12.5 K/uL (4.8-10.8)
[2017-03-03] MEDS: (Novolin 70/30) NPH/Regular 70/30 Units/ml 10 ml vial SC SCH ×2 (08:00→17:30)
[2017-03-03] MEDS: (Novolin R) Insulin Human Regular 100 units/ml vial SC SCH ×4 (08:00→22:38)
[2017-03-03 08:11] LABS: CALCIUM 9.5 mg/dl (8.6-10.4)
[2017-03-03 08:19] LABS: FREE T4 1.09 ng/dL (0.78-2.19)
[2017-03-03 08:33] LABS: THYROID STIMULATING HORMONE 11.3 mIU/L (0.46-4.68)
[2017-03-03] MEDS: Calcium-Vit D 250 mg-125 Units Tab UD PO SCH ×2 (09:09→18:10)
--- NOTE | 2017-03-03 10:16 | PN ---
DATE: 03/03/2017 TIME OF EVALUATION: 6:45 a.m. LOCATION: Room #662, bed A. NEUROLOGICAL PROBLEM: Possible transient ischemic attack versus new stroke. The patient was seen over the weekend by Dr. Hess, and his workup being reviewed and appreciated. The patient was admitted with high blood sugar as per the director of restaurant, being sent her to the hospital for further evaluation to stabilize her sugar. During the admission, the patient had a history of documented some numbness sensation which is not definitely observed or subjectively as well as document-hinojosa well described. No history of loss of consciousness. No history of seizures. No similar episodes happened. PAST MEDICAL HISTORY: Hypertension, diabetes, TIA and stroke in the past. PERSONAL HISTORY: Denies smoking or alcohol use. ALLERGIES: No known allergies. MEDICATIONS: The patient has been taking medications, including aspirin, losartan, rosuvastatin, insulin, amlodipine, calcium supplement with levothyroxine. The patient is examined with an sign language interpreter. She is awake, alert. She knows where she is. She knows the problem why she was sent to the hospital. She knows the name of the President. She knows the year as well. She moves all 4 extremities as per command and no right and left confusion. She does 2- to 3-step complex command also. Good social smiling. No sign of depression. No sign of suicidal ideation. Cranial Nerve Examination: Visual field intact. Respond to visual threat. Pupil reactive to light; extraocular movement, no primary gaze or nystagmus. No facial asymmetry. She moves all 4 extremities against the gravity. Deep tendon reflexes trace throughout. Plantars are upgoing on her both sides. There is less sensation to the pain on her right to compared with the left side, consistent with left subcortical dysfunction. Finger nose test, she could be able to do it. Gait deferred at this time. WORKUP: CT of the head had been reviewed, it does show wedge-shaped left cerebellar infarct, bilateral thalamic infarct, left cardiac region infarct, multiple small vessel disease. WBC 10.3, hemoglobin 13.6, hematocrit 42.2, platelet 297. Sodium 136, potassium 4.2, chloride 102, bicarbonate 21, creatinine 1.3. GFR 39. TSH is 13.2. RECOMMENDATION: 1. The patient should get out of the bed. 2. DVT prophylaxis. Continue aspirin as well as angiotensin receptor oscar with the statin. 3. The patient is scheduled to have MRA of the brain to rule out any new stroke process; however, clinically, she does not show any new process of ischemia. Diabetic control, blood pressure control and seems to be thyroid supplement should be increased. Since the patient will be followed by Dr. Bhat, leave her recommendation. When the patient is medically stable, no further intervention is needed from neurological point of view. Physical therapy should be started. Presumably, the patient will be followed while she is in the hospital. Ra Rodriguez MD MTDD
[2017-03-03] MEDS ORDERED: (Novolog Mix 70/30) Insulin Aspart/Insulin Aspar 100 units/ml SC STA (10:26)
[2017-03-03] MEDS ORDERED: (Novolin 70/30) NPH/Regular 70/30 Units/ml 10 ml vial SC ONE (10:49)
--- NOTE | 2017-03-03 16:08 | CARD ---
APPROVED REPORT EXAM: Two-dimensional and M-mode echocardiogram with Doppler and color Doppler. Other Information Quality : GoodRhythm : NSR INDICATION CVA/TIA RISK FACTORS Hypertension Diabetes 2D DIMENSIONS IVSd0.8 (0.7-1.1cm)LVDd3.6 (3.9-5.9cm) PWd0.8 (0.7-1.1cm)LVDs2.4 (2.5-4.0cm) FS (%) 34.1 %LVEF (%)64.1 (>50%) M-Mode DIMENSIONS Left Atrium (MM)4.27 (2.5-4.0cm)Aortic Root2.72 (2.2-3.7cm) Aortic Cusp Exc.1.59 (1.5-2.0cm) Aortic Valve AI P 1/2 [id number] Mitral Valve MV E Ijyyyejf45.6cm/sMV A Bzfertma617.3cm/sE/A ratio0.7 TDI E/Lateral E'0.0E/Medial E'0.0 Tricuspid Valve TR Peak [id number]/sTR Peak Gr.[id number] LEFT VENTRICLE The left ventricle is normal size. There is normal left ventricular wall thickness. The left ventricular systolic function is normal. The left ventricular ejection fraction is within the normal range. There is normal LV segmental wall motion. Transmitral Doppler flow pattern is Grade I-abnormal relaxation pattern. RIGHT VENTRICLE The right ventricle is normal size. The right ventricular systolic function is normal. ATRIA Normal left atrial index. The right atrium size is normal. AORTIC VALVE The aortic valve is slightly calcified but opens well. There is mild aortic regurgitation. There is no aortic valvular stenosis. MITRAL VALVE Mitral annular calcification is mild. The mitral valve leaflets are normal. There is no mitral valve regurgitation noted. TRICUSPID VALVE The tricuspid valve is normal in structure. There is trace to mild tricuspid regurgitation. PULMONIC VALVE The pulmonic valve is not well visualized. GREAT VESSELS The aortic root is normal in size. The IVC is normal in size and collapses >50% with inspiration. PERICARDIAL EFFUSION There is no pericardial effusion. <Conclusion> The left ventricular systolic function is normal. There is normal LV segmental wall motion. Transmitral Doppler flow pattern is Grade I-abnormal relaxation pattern. The right ventricular systolic function is normal. There is mild aortic regurgitation. Miitral annular calcification noted. The mitral valve leaflets are normal. There is no pericardial effusion.
--- NOTE | 2017-03-03 17:47 | CP.PCM.PN ---
Subjective - Date & Time of Evaluation Date of Evaluation: 03/03/17 Time of Evaluation: 17:46 - Subjective Subjective: Pt had her tests done as ordered, except for MRI of the brain bec of scheduling issues. Pt seen and examined at bedside while eating dinner. Able to swallow without difficulty, and in Serbian, informed pt that she had apparently 4 areas where she had a stroke, and most prob in the recent past. This would explain the new onset of frequent confusion that pt displays. Verified with pt that she lives alone, and that she plans to continue living alone. She does not have any children, but has a niece that comes to stay with her on the weekend. .This is turning into a potentially very unsafe discharge for this patient, and though no wrongdoing has been committed, I would like to at least get the opinion of Adult Protective Services to oversee the welfare of this patient if she qualifies. Hence, I have requested consultation with SW for this avenue to be pursued while awaiting the results of testing. >>IN today's labs, pt had a spike in WBC, although pt has not been febrile nor complains of any pain. There has been no apparent focus, but will at least obtain a CXR and UA and culture to rule out anyoccult infection. Objective - Vital Signs/Intake and Output Vital Signs (last 24 hours): Temp Pulse Resp BP Pulse Ox 98.4 F 78 20 158/78 H 100 03/03/17 15:15 03/03/17 15:15 03/03/17 15:15 03/03/17 15:15 03/03/17 15:15 Intake and Output: 03/03/17 03/03/17 06:59 18:59 Intake Total 350 1080 Balance 350 1080 - Medications Medications: Current Medications Amlodipine Besylate (Norvasc) 2.5 mg PO QPM [facility] Last Admin: 03/02/17 18:55 Dose: 2.5 mg Aspirin (Aspirin Chewable) 81 mg PO DAILY [facility] Last Admin: 03/03/17 09:09 Dose: 81 mg Calcium/Vitamin D (Oscal-D 250 Mg-125 Units Tab) 2 tab PO BID [facility] Last Admin: 03/03/17 09:09 Dose: 2 tab Heparin Sodium (Porcine) (Heparin) 5,000 units SC Q12 [facility] Last Admin: 03/03/17 09:16 Dose: 5,000 units Hydrochlorothiazide (Hydrodiuril) 25 mg PO DAILY [facility] Stop: 03/04/17 10:01 Last Admin: 03/03/17 09:20 Dose: 25 mg Insulin Glargine (Lantus) 12 unit SC [facility] Insulin Human Isoph/Insulin Regular (Novolin 70/30 (70/30 Units/Ml) 10 Ml) 30 units SC ACB [facility] Last Admin: 03/03/17 08:00 Dose: Not Given Insulin Human Isoph/Insulin Regular (Novolin 70/30 (70/30 Units/Ml) 10 Ml) 20 units SC ACD [facility] Last Admin: 03/02/17 17:30 Dose: 20 units Insulin Human Regular (Novolin R) 0 unit SC ACHS [facility] PRN Reason: Protocol Last Admin: 03/03/17 12:57 Dose: 3 unit Levothyroxine Sodium (Synthroid) 88 mcg PO DAILY@0630 [facility] Last Admin: 03/03/17 06:33 Dose: 88 mcg Losartan Potassium (Cozaar) 100 mg PO DAILY [facility] Last Admin: 03/03/17 09:09 Dose: 100 mg Rosuvastatin Calcium (Crestor) 2.5 mg PO [facility] Last Admin: 03/02/17 22:27 Dose: 2.5 mg - Labs Labs: 03/03/17 07:21 03/03/17 07:21 - Constitutional Appears: No Acute Distress - Head Exam Head Exam: NORMAL INSPECTION, NORMOCEPHALIC - Eye Exam Eye Exam: Normal appearance Pupil Exam: NORMAL ACCOMODATION - ENT Exam ENT Exam: Mucous Membranes Moist, Normal Exam - Neck Exam Neck Exam: Full ROM - Respiratory Exam Respiratory Exam: NORMAL BREATHING PATTERN - Cardiovascular Exam Cardiovascular Exam: REGULAR RHYTHM - GI/Abdominal Exam GI & Abdominal Exam: Normal Bowel Sounds - Rectal Exam Rectal Exam: Deferred - Extremities Exam Extremities Exam: Normal Inspection - Neurological Exam Neurological Exam: Alert, Awake, CN II-XII Intact, Oriented x3 Neuro motor strength exam: Left Upper Extremity: 3, Right Upper Extremity: 3, Left Lower Extremity: 3, Right Lower Extremity: 3 - Psychiatric Exam Psychiatric exam: Normal Affect, Normal Mood - Skin Skin Exam: Dry, Intact, Normal Color, Warm Assessment and Plan (1) Diabetes type 2, uncontrolled Assessment & Plan: uncontrolled, coitinue titration of insulin regimen. Status: Acute (2) Malignant hypertension Assessment & Plan: addition of HCTZ today pls maximal doses of amlodipine and ARB. No adverse effects noted, and BP coming down gently. Status: Acute (3) Elevated serum creatinine Assessment & Plan: creatinine bumped up 0.1 today. 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 Status: Acute
[2017-03-03] MEDS ORDERED: (Lantus) Insulin Glargine, Recombinant SC SCH (22:00)
[2017-03-03] MEDS: Rosuvastatin Calcium 2.5 mg Tab PO SCH (22:38)
[2017-03-03 22:39] LABS: RBC URINE < 1 /hpf (0-3); URINE BACTERIA OCC (<OCC); URINE BILIRUBIN NEGATIVE (NEGATIVE); URINE COLOR Yellow (YELLOW); URINE GLUCOSE (UA) 2+ mg/dL (Normal); URINE KETONE NEGATIVE (NEGATIVE); URINE LEUKOCYTE ESTERASE NEG Leu/uL (Negative); URINE PROTEIN 2+ mg/dL (NEGATIVE); URINE UROBILINOGEN NORMAL mg/dL (0.2-1.0); WBC URINE 1 /hpf (0-5)
[2017-03-03 22:40] LABS: URINE BLOOD TRACE (NEGATIVE)
--- NOTE | 2017-03-03 23:24 | PN ---
ENDO FOLLOWUP NOTE LOCATION: Room 662. SUBJECTIVE: This is an 86-year-old female with recent uncontrolled type 2 insulin-requiring diabetes, now being followed closely for metabolic management. Her oral intake remains quite variable at this time with very suboptimal meal portions overnight as per the nursing staff. Her glucose values have ranged from 65 early this morning with a repeat glucose of 95 and subsequent glucose of 284 as the insulin dose regimen was given late by the nursing staff. Her latest chemistry shows a BUN of 17, sodium 139, potassium 4.0, chloride 102, CO2 of 26, glucose 90 and creatinine 1.5. So, at this time, we will modify and lower her basal insulin with Lantus to be given at 12 units subcu at bedtime daily to start tonight. We will also continue, however, at premixed insulin regimen with Novolin 70/30 given as 30 units a.c. breakfast and 20 units a.c. dinner to start today. We will titrate incrementally as indicated to optimize metabolic control. We will also continue the low-dose correction scale using regular insulin as ordered. We will obtain serial chemistries and supplement accordingly as needed. We will follow. Haley Bhat MD
--- NOTE | 2017-03-04 02:29 | PN ---
DATE: 03/03/2017 SUBJECTIVE: The patient was seen eating lunch and behavior is manageable, still has periods of confusion. The patient was referred by neurologist. The patient is undergoing her workup. The patient had a CAT scan of the head done that showed the following findings: The patient's CAT scan result showed wedge-shaped area of low density representing an infract noted in the left cerebellar hemisphere. No mass effect on the fourth ventricle. The age is uncertain. MRI with diffusion imaging would be helpful if clinically relevant. Presence of lacunar infarcts within the thalami bilaterally and the left lentiform nucleus, the age is uncertain. A 3 mm punctate area of increased density noted within the head of the left caudate, this could represent calcification or a small petechial hemorrhage. MRI might be helpful. Alternatively, followup CT scan examination before this exam might be considered. Advanced chronic microvascular ischemic change in the deep white matter structures. The patient has history of uncontrolled diabetes. The patient according to the nurse is for MRI. VITAL SIGNS: Temperature is 98, pulse is 81, blood pressure 189/72, respirations 20, and oxygen sat is 99%. The patient is alert, verbal, cooperative, conversing in Cymraes. The patient states that she is feeling better. The random blood sugar today is 90, but the fingerstick is around 200s. REVIEW OF SYSTEMS: GENERAL: The patient is alert, oriented x3 but forgetful at times. She is seen in her room eating her lunch. She is very cooperative with staff. SKIN: No diaphoresis. HEENT: No headache. No dizziness. NECK: Supple. RESPIRATORY: No dyspnea. CARDIOVASCULAR: No chest pain. GASTROINTESTINAL: The patient is eating better. EXTREMITIES: Unsteady gait. No tremors. MUSCULOSKELETAL: Feels weak. NEURO: Alert, with periods of confusion, but clinically improved. GENITOURINARY: No incontinence, no dysuria. MENTAL STATUS EXAMINATION: Elderly female, who looks stated age, oriented x3, pleasant in approach. Mood is calm. Affect is reactive. Speech is spontaneous. Thought process is coherent. Thought content, the patient has agreed to go for subacute rehab and also to get some home care services at home. No suicidal or homicidal ideation. No psychosis. Attention and memory seem to be fair. Insight and judgment are fair. Impulse control is fair. IMPRESSION: History of delirium, metabolic encephalopathy secondary to uncontrolled diabetes. PLAN AND RECOMMENDATION: Continue treatment plan as outlined. The patient has been followed by Dr. Rodriguez. The patient has been scheduled for MRI. The patient is at high risk for CVA considering that the patient has history of uncontrolled diabetes. Dereck Ford MD MTDChristopher
[2017-03-04] MEDS: Levothyroxine 88 MCG TAB PO SCH ×2 (06:24→06:29)
[2017-03-04 06:59] LABS: BASO # 0.1 K/uL (0.0-0.2); BASO % 0.6 % (0.0-2.0); EOS # 0.2 K/uL (0.0-0.7); EOS % 1.7 % (0.0-4.0); HEMATOCRIT 37.2 % (34.0-47.0); LYMPH # 2.7 K/uL (1.0-4.3); LYMPH % 25.4 % (20.0-40.0); MEAN CELL VOLUME 96.6 fL (81.0-99.0); MEAN CORPUSCULAR HEMOGLOBIN 32.6 pg (27.0-31.0); MEAN CORPUSCULAR HGB CONC 33.7 g/dL (33.0-37.0); MEAN PLATELET VOLUME 10.2 fL (7.2-11.7); MONO # 0.9 K/uL (0.0-0.8); MONO % 8.7 % (0.0-10.0); RED CELL DISTRIBUTION WIDTH 13.8 % (11.5-14.5); WHITE BLOOD COUNT 10.5 K/uL (4.8-10.8)
[2017-03-04 07:35] LABS: POTASSIUM 4.7 mmol/L (3.6-5.2)
[2017-03-04 07:39] LABS: CALCIUM 9.7 mg/dl (8.6-10.4)
[2017-03-04] MEDS: (Novolin R) Insulin Human Regular 100 units/ml vial SC SCH ×4 (07:48→21:31)
--- NOTE | 2017-03-04 08:04 | PN ---
DATE: 03/04/2017 NEUROLOGICAL PROBLEM: Possible transient ischemic attack. PHYSICAL EXAMINATION: VITAL SIGNS: Blood pressure 147/71, mean arterial pressure of 96, respiratory rate 18, temperature 98.4, pulse rate 88 and regular. NEUROLOGIC: The patient is more awake, alert, oriented to person, place and time. Family is communicable only in Swedish. She moves all four extremities. Speech is fluent. Deep tendon reflexes and coordination all same as before (previous examination). LABORATORY DATA: Recent blood workup, WBC 10.5, hemoglobin 12.6, hematocrit 37.2, platelet 292. ASSESSMENT AND PLAN: The patient did have electroencephalogram, being reviewed by me, showed 5-7 Hz high-theta activities, which may be normal for her age. No paroxysmal activities noted during the study. The patient is schedule to have MRI of the brain. However, the recommendation is already given. Please continue the same recommendations from Neuro. Ra Rodriguez MD
[2017-03-04 09:19] LABS: FREE T4 1.11 ng/dL (0.78-2.19)
[2017-03-04 09:34] LABS: THYROID STIMULATING HORMONE 8.73 mIU/L (0.46-4.68)
--- NOTE | 2017-03-04 09:47 | RAD ---
HISTORY: leucocytosis rule out pneumonia COMPARISON: Prior portable chest 02/27/2017 TECHNIQUE: Chest PA and lateral FINDINGS: LUNGS: There is no acute infiltrate identified with bronchovascular markings appearing unremarkable. Improved history volume is noted. PLEURA: No significant pleural effusion identified. No pneumothorax apparent. CARDIOVASCULAR: Normal. OSSEOUS STRUCTURES: No significant abnormalities. VISUALIZED UPPER ABDOMEN: Normal. OTHER FINDINGS: Limited mammillation of the right hemidiaphragm is identified. IMPRESSION: No acute infiltrate or pleural effusion identified. Improved inspiratory volume is identified. .
[2017-03-04] MEDS: (Novolin 70/30) NPH/Regular 70/30 Units/ml 10 ml vial SC SCH ×2 (10:05→17:30)
[2017-03-04] MEDS: Calcium-Vit D 250 mg-125 Units Tab UD PO SCH ×2 (10:05→18:12)
--- NOTE | 2017-03-04 12:03 | MRI ---
PROCEDURE: MRI BRAIN WITHOUT CONTRAST HISTORY: brain infarcts age undet,incidental findings vs COMPARISON: Head CT without contrast 03/04/2017. TECHNIQUE: Multiplanar, multisequence MR images of the brain were obtained without intravenous contrast enhancement. FINDINGS: HEMORRHAGE: None DWI: There is a potential tiny subacute lacune or infarct in the right frontal lobe superiorly. Mildly dark signal intensity appears to correspond in the a apparent diffusion coefficient map to an area of focal hyper intensity on the diffusion-weighted series and not bright signal. No acute or subacute lobar brain infarction appreciable. BRAIN PARENCHYMA: Diffuse cerebral atrophy and chronic microangiopathy are reiterated with a chronic lacune identified in the bilateral thalami and bilateral basal ganglia. There is no mass effect. No suspicious extra-axial fluid collection is identified. Limited chronic brainstem microangiopathy affects the cerebellum with the brainstem unremarkable diffusely. Midline brain anatomy appears otherwise nonfocal including the corpus callosum. Chronic lobar infarction affects the inferior left cerebellum. VENTRICLES: Unremarkable. No hydrocephalus. CRANIUM: Unremarkable. ORBITS: Grossly unremarkable. PARANASAL SINUSES/MASTOIDS: Bilateral mastoiditis is incidentally noted. VASCULAR SYSTEM: Skull base flow voids intact. OTHER FINDINGS: None. IMPRESSION: 1. Likely subacute lacunar infarct right frontal lobe. No acute or subacute lobar brain infarction. No intra hemorrhage or mass-effect. 2. Age-appropriate age related neuro degenerative changes are identified with bilateral the lamina can basal ganglia chronic lacune or infarcts identified.
--- NOTE | 2017-03-04 12:04 | VASCLAB ---
PROCEDURE: HISTORY: new discovered CVA, incidental to CT scan of brain COMPARISON: None available. TECHNIQUE: Grayscale and duplex Doppler evaluation of the cervical carotid and vertebral arteries were performed. The common carotid, carotid bifurcations and cervical Internal Carotid Artery (ICA) and proximal External Carotid Artery (ECA) were evaluated. The vertebral arteries were evaluated for gross patency and flow direction. Report prepared by Faheem Rogers, BS, RVT FINDINGS: RIGHT CAROTID ARTERIES: 1. Common Carotid Artery: Moderate plaque formation of the right proximal CCA which does not results in hemodynamically significant stenosis. Maximum Peak Systolic velocity: 101 cm/sec: End-diastolic velocity 16 cm/sec. 2. Carotid Bifurcation: Calcific plaque formation. Maximum Peak Systolic velocity: 104 cm/sec: End-diastolic velocity 16 cm/sec. 3. Internal Carotid Artery: Moderate plaque formation of the right proximal ICA which results in hemodynamically significant stenosis. Plaque description: Calcific 3.1. Proximal Segment: Peak systolic velocity 93 cm/sec: End-diastolic velocity 20 cm/sec - % stenosis 0-15% 3.2. Middle Segment: Peak systolic velocity 88 cm/sec: End-diastolic velocity 18 cm/sec - % stenosis 0-15% 3.3. Distal Segment: Peak systolic velocity 86 cm/sec: End-diastolic velocity 21 cm/sec - % stenosis 0-15% 4. External Carotid Artery: No significant focal plaque formation. Peak systolic velocity 170 cm/sec 5. ICA/CCA Ratio: 1.0 LEFT CAROTID ARTERIES: 1. Common Carotid Artery: No significant focal plaque formation of the left common carotid artery. Maximum Peak Systolic velocity: 73 cm/sec: End-diastolic velocity 16 cm/sec. 2. Carotid Bifurcation: Calcific plaque formation. Maximum Peak Systolic velocity: 96 cm/sec: End-diastolic velocity 19 cm/sec. 3. Internal Carotid Artery: Minimal plaque formation of the left proximal ICA which does not result in hemodynamically significant stenosis. Plaque description: Calcific 3.1. Proximal Segment: Peak systolic velocity 125 cm/sec: End-diastolic velocity 25 cm/sec - % stenosis 0-15% 3.2. Middle Segment: Peak systolic velocity 69 cm/sec: End-diastolic velocity 17 cm/sec - % stenosis 0-15% 3.3. Distal Segment: Peak systolic velocity 68 cm/sec: End-diastolic velocity 16 cm/sec - % stenosis 0-15% 4. External Carotid Artery: No significant focal plaque formation. Peak systolic velocity 150 cm/sec 5. ICA/CCA Ratio: 1.7 VERTEBRAL ARTERIES: 1. Right Vertebral Artery: The right vertebral artery flow direction is antegrade. 2. Left Vertebral Artery: The left vertebral artery flow direction is antegrade. OTHER FINDINGS: 1. Right Brachial Blood pressure: 176 mmHg. 2. Left Brachial Blood pressure: 170 mmHg. IMPRESSION: RIGHT: Duplex scan does not suggest hemodynamically significant stenosis of the right extracranial carotid arteries. LEFT: Duplex scan does not suggest hemodynamically significant stenosis of the left extracranial carotid arteries.
[2017-03-04] MEDS ORDERED: cefTRIAXone 2 GM IN NS 2 GM/100 ML BAG IVPB SCH (16:45)
--- NOTE | 2017-03-04 16:54 | CP.PCM.PN ---
Subjective - Date & Time of Evaluation Date of Evaluation: 03/04/17 Time of Evaluation: 16:52 - Subjective Subjective: Reviewed all tests done with final reports today. MRI corroborates finding of CT scan from last Friday, and as suspected, some are old infarcts of the brain with a few subacute lacunar infarcts. Nothing to be done per Neuro. In the meantime, I discussed my concerns with Social Work and they agree that this could potentially be an unsafe discharge. SW exerting all efforts to reach pt's family. Objective - Vital Signs/Intake and Output Vital Signs (last 24 hours): Temp Pulse Resp BP Pulse Ox 98.1 F 79 20 179/75 H 99 03/04/17 15:13 03/04/17 15:13 03/04/17 15:13 03/04/17 15:13 03/04/17 15:13 Intake and Output: 03/04/17 03/04/17 06:59 18:59 Intake Total 300 Balance 300 - Medications Medications: Current Medications Amlodipine Besylate (Norvasc) 2.5 mg PO QPM [facility] Last Admin: 03/03/17 18:10 Dose: 2.5 mg Aspirin (Aspirin Chewable) 81 mg PO DAILY [facility] Last Admin: 03/04/17 10:05 Dose: 81 mg Calcium/Vitamin D (Oscal-D 250 Mg-125 Units Tab) 2 tab PO BID [facility] Last Admin: 03/04/17 10:05 Dose: 2 tab Heparin Sodium (Porcine) (Heparin) 5,000 units SC Q12 [facility] Last Admin: 03/04/17 10:04 Dose: 5,000 units Ceftriaxone Sodium (Rocephin 2 Gm Ivpb) 2 gm in 100 mls @ 100 mls/hr IVPB Q24H [facility] Insulin Glargine (Lantus) 6 unit SC HS FALGUNI Insulin Human Isoph/Insulin Regular (Novolin 70/30 (70/30 Units/Ml) 10 Ml) 30 units SC ACB [facility] Last Admin: 03/04/17 10:05 Dose: 30 units Insulin Human Isoph/Insulin Regular (Novolin 70/30 (70/30 Units/Ml) 10 Ml) 20 units SC ACD [facility] Last Admin: 03/03/17 17:30 Dose: 20 units Insulin Human Regular (Novolin R) 0 unit SC ACHS [facility] PRN Reason: Protocol Last Admin: 03/04/17 12:16 Dose: 4 unit Levothyroxine Sodium (Synthroid) 88 mcg PO DAILY@0630 [facility] Last Admin: 03/04/17 06:29 Dose: Not Given Losartan Potassium (Cozaar) 100 mg PO DAILY [facility] Last Admin: 03/04/17 10:05 Dose: 100 mg Rosuvastatin Calcium (Crestor) 2.5 mg PO [facility] Last Admin: 03/03/17 22:38 Dose: 2.5 mg - Labs Labs: 03/04/17 06:39 03/04/17 06:39 - Constitutional Appears: Well, No Acute Distress - Head Exam Head Exam: NORMAL INSPECTION, NORMOCEPHALIC - Eye Exam Eye Exam: Normal appearance Pupil Exam: NORMAL ACCOMODATION - ENT Exam ENT Exam: Mucous Membranes Moist - Neck Exam Neck Exam: Full ROM - Respiratory Exam Respiratory Exam: NORMAL BREATHING PATTERN - Cardiovascular Exam Cardiovascular Exam: Bradycardia - GI/Abdominal Exam GI & Abdominal Exam: Normal Bowel Sounds - Rectal Exam Rectal Exam: Deferred - Extremities Exam Extremities Exam: Normal Capillary Refill, Normal Inspection - Back Exam Back Exam: NORMAL INSPECTION - Neurological Exam Neurological Exam: Abnormal Gait, CN II-XII Intact, Oriented x3 Neuro motor strength exam: Left Upper Extremity: 4, Right Upper Extremity: 4, Left Lower Extremity: 4, Right Lower Extremity: 4 - Psychiatric Exam Psychiatric exam: Normal Affect, Normal Mood Additional comments: > does not seem to have insight on the gravity of her situation - Skin Skin Exam: Dry, Intact, Normal Color Assessment and Plan (1) Diabetes type 2, uncontrolled Assessment & Plan: labile blood sugars Status: Acute (2) Malignant hypertension Assessment & Plan: was stabilizing, will observe with addition of NSS for IV abx Status: Acute (3) Elevated serum creatinine Assessment & Plan: CKD Stage 2 and will change this item to the appropriate diagnosis Status: Acute (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
[2017-03-04] MEDS: cefTRIAXone 2 GM in Sodium Chloride 0.9% 100 ML IVPB SCH (18:10)
[2017-03-04] MEDS: (Lantus) Insulin Glargine, Recombinant SC SCH (21:31)
[2017-03-04] MEDS: Rosuvastatin Calcium 2.5 mg Tab PO SCH (22:47)
--- NOTE | 2017-03-04 23:26 | PN ---
ENDO FOLLOWUP NOTE SUBJECTIVE: This is an 86-year-old female with recent uncontrolled type 2 insulin-requiring diabetes, now being followed closely for metabolic management. Her glycemic levels are fluctuating especially with overnight fire sprinkler installer hypoglycemia related to perineal and suboptimal meal portions over the last 48 hours as noted. Her glucose levels today are up to 70 early this morning pre breakfast and the repeat level now is 327 because of delayed insulin administration by the nursing staff. Her latest chemistry shows a BUN of 16, sodium 140, potassium 4.7, chloride 99, CO2 of 31, glucose 77 and creatinine 1.3. Her glucose levels overnight were 149 to 181 mg/dL. So, at this time, we will lower the basal insulin with Lantus to be given as 6 units subcu at bedtime daily to start tonight. We will continue the premixed insulin regimen with Novolin 70/30 given as 30 units a.c., breakfast and 20 units a.c., dinner as ordered. We will titrate incrementally as indicated to optimize metabolic control. We will obtain serial chemistries and supplement accordingly as needed. We will also continue the levothyroxine given as 88 mcg daily as ordered. 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 The need for glucose monitoring and insulin self administration currently undertaken now with precision and with safety by the patient at this time. We will also discuss with the psychiatrist regarding the patient's competency. We will obtain serial chemistries and supplement accordingly as needed. We will follow. Haley Bhat MD
--- NOTE | 2017-03-05 03:39 | EEG ---
DATE OF STUDY: 03/03/2017 This is a resting electroencephalogram of awake and drowsy adult. During the study, photic stimulation was performed. Hyperventilation was not performed. The resting electroencephalogram shows 5-7 Hz moderate voltage theta activities noted from the beginning. Some movement artifact contaminated the background rhythm particularly on her left frontotemporal and central leads. The photic stimulation did not evoke driving response noted at 2 to 20 Hz. IMPRESSION: This is mildly abnormal electroencephalogram because of persistent slowing. However, considering her age, this is probably normal for her age. During the study, neither electroencephalographic paroxysmal activities nor focal slowing noted. Ra Rodriguez MD
[2017-03-05] MEDS: Levothyroxine 88 MCG TAB PO SCH (06:08)
--- NOTE | 2017-03-05 07:29 | PN ---
DATE: NEUROLOGICAL FOLLOWUP EVALUATION NEUROLOGICAL PROBLEM: Episodic numbness of her arm, being admitted with possible transient ischemic attack. PHYSICAL EXAMINATION GENERAL: The patient is already up washing her hands and bathe in the bathroom. She is awake. She is independently walking around. She denies any complaints. She slept good. VITAL SIGNS: Blood pressure 150/66, mean arterial pressure of 94, respiratory rate 18, temperature 98.2, pulse rate 83 and regular. NEUROLOGIC: Unchanged to compare with my previous examination. LABORATORY DATA: MRI of the brain showed atrophy with periventricular ischemic changes in all territories both anterior as well as posterior cerebral artery distribution including brain stem, adriane, thalamic region left more than the right, basal ganglia. The patient also showed evidence of significant microangiopathic pattern. RECOMMENDATION: The patient is neurologically stable considering her risk factors. I prefer her to be on clopidogrel 75 mg in addition to aspirin for 6 months when she is stable and clopidogrel being discontinued and aspirin should be continued. She have angiotensin receptor blockers with statin. Blood pressure as well as diabetes should be controlled. The patient may be benefited of doing polysomnogram as outpatient to rule in or out sleep related breathing disorder. The patient is neurologically cleared and signing her off from followup. Ra Rodriguez MD
[2017-03-05] MEDS: (Novolin R) Insulin Human Regular 100 units/ml vial SC SCH ×4 (07:31→21:00)
[2017-03-05 07:54] LABS: POTASSIUM 4.7 mmol/L (3.6-5.2)
[2017-03-05 07:57] LABS: CALCIUM 9.9 mg/dl (8.6-10.4)
[2017-03-05 08:21] LABS: FREE T4 1.26 ng/dL (0.78-2.19)
[2017-03-05] MEDS: (Novolin 70/30) NPH/Regular 70/30 Units/ml 10 ml vial SC SCH ×2 (08:30→17:33)
[2017-03-05 08:35] LABS: THYROID STIMULATING HORMONE 14.9 mIU/L (0.46-4.68)
[2017-03-05] MEDS: Calcium-Vit D 250 mg-125 Units Tab UD PO SCH ×2 (09:28→17:36)
[2017-03-05 09:32] LABS: BASO # 0.1 K/uL (0.0-0.2); BASO % 0.6 % (0.0-2.0); EOS # 0.2 K/uL (0.0-0.7); EOS % 1.5 % (0.0-4.0); HEMATOCRIT 38.9 % (34.0-47.0); LYMPH # 2.6 K/uL (1.0-4.3); LYMPH % 22.8 % (20.0-40.0); MEAN CELL VOLUME 97.4 fL (81.0-99.0); MEAN CORPUSCULAR HGB CONC 31.9 g/dL (33.0-37.0); MEAN PLATELET VOLUME 11.1 fL (7.2-11.7); MONO % 8.6 % (0.0-10.0); NRBC % 0.1 % (0.0-2.0); RED CELL DISTRIBUTION WIDTH 14.3 % (11.5-14.5); WHITE BLOOD COUNT 11.6 K/uL (4.8-10.8)
[2017-03-05] MEDS: cefTRIAXone 2 GM in Sodium Chloride 0.9% 100 ML IVPB SCH (17:34)
[2017-03-05] MEDS: Rosuvastatin Calcium 2.5 mg Tab PO SCH (21:06)
[2017-03-05] MEDS: (Lantus) Insulin Glargine, Recombinant SC SCH (21:07)
--- NOTE | 2017-03-05 21:32 | CP.PCM.PN ---
Subjective - Date & Time of Evaluation Date of Evaluation: 03/05/17 Time of Evaluation: 21:27 - Subjective Subjective: Pt's BP and BS continue to go up and down, with WBC also in a very small range of variation. No complaints, though pt's mental status definitely deteriorates at night odalis with discontinuation of 1:1. Pt remains comfortable though, though po intake varies. Social issues still persist, and no solution obtained as of yet. Phone number of family contact as well as pt's phone number is the same, and so I suspect that this is the home number for pt. > Though pt recommeded for TCU, pt's comprehension and ability to follow commands or retain the thought does not appear to be quite that of a normal person. Pt's attention wanders and I don't think she is an appropriate TCU admission. Just wanted to bring this issue to the forefront. Objective - Vital Signs/Intake and Output Vital Signs (last 24 hours): Temp Pulse Resp BP Pulse Ox 98.1 F 78 20 181/66 H 97 03/05/17 15:12 03/05/17 15:12 03/05/17 15:12 03/05/17 15:12 03/05/17 15:12 Intake and Output: 03/05/17 03/06/17 18:59 06:59 Intake Total 600 Balance 600 - Medications Medications: Current Medications Amlodipine Besylate (Norvasc) 5 mg PO QPM [facility] Aspirin (Aspirin Chewable) 81 mg PO DAILY [facility] Last Admin: 03/05/17 09:28 Dose: 81 mg Calcium/Vitamin D (Oscal-D 250 Mg-125 Units Tab) 2 tab PO BID [facility] Last Admin: 03/05/17 17:36 Dose: 2 tab Clopidogrel Bisulfate (Plavix) 75 mg PO DAILY [facility] Last Admin: 03/05/17 09:28 Dose: 75 mg Furosemide (Lasix) 20 mg PO DAILY [facility] Heparin Sodium (Porcine) (Heparin) 5,000 units SC Q12 [facility] Last Admin: 03/05/17 21:06 Dose: 5,000 units Ceftriaxone Sodium 2 gm/ (Sodium Chloride) 100 mls @ 100 mls/hr IVPB Q24H [facility] Last Admin: 03/05/17 17:34 Dose: 100 mls/hr Insulin Glargine (Lantus) 6 unit SC HS [facility] Last Admin: 03/05/17 21:07 Dose: 6 units Insulin Human Isoph/Insulin Regular (Novolin 70/30 (70/30 Units/Ml) 10 Ml) 30 units SC ACB [facility] Last Admin: 03/05/17 08:30 Dose: 30 units Insulin Human Isoph/Insulin Regular (Novolin 70/30 (70/30 Units/Ml) 10 Ml) 20 units SC ACD [facility] Last Admin: 03/05/17 17:33 Dose: 20 units Insulin Human Regular (Novolin R) 0 unit SC ACHS [facility] PRN Reason: Protocol Last Admin: 03/05/17 21:00 Dose: Not Given Levothyroxine Sodium (Synthroid) 88 mcg PO DAILY@0630 [facility] Last Admin: 03/05/17 06:08 Dose: 88 mcg Losartan Potassium (Cozaar) 100 mg PO DAILY [facility] Last Admin: 03/05/17 09:28 Dose: 100 mg Rosuvastatin Calcium (Crestor) 2.5 mg PO [facility] Last Admin: 03/05/17 21:06 Dose: 2.5 mg - Labs Labs: 03/05/17 09:19 03/05/17 07:34 - Constitutional Appears: No Acute Distress - Head Exam Head Exam: NORMAL INSPECTION, NORMOCEPHALIC - Eye Exam Eye Exam: Normal appearance - ENT Exam ENT Exam: Mucous Membranes Moist, Normal Exam - Neck Exam Neck Exam: Full ROM, Normal Inspection - Respiratory Exam Respiratory Exam: Clear to Ausculation Bilateral, NORMAL BREATHING PATTERN - Cardiovascular Exam Cardiovascular Exam: REGULAR RHYTHM, +S1, Murmur - GI/Abdominal Exam GI & Abdominal Exam: Normal Bowel Sounds - Rectal Exam Rectal Exam: Deferred - Extremities Exam Extremities Exam: Calf Tenderness - Back Exam Back Exam: NORMAL INSPECTION - Neurological Exam Neurological Exam: Abnormal Gait (teeters to the side) Neuro motor strength exam: Left Upper Extremity: 3, Right Upper Extremity: 3, Left Lower Extremity: 4, Right Lower Extremity: 4 - Psychiatric Exam Psychiatric exam: Normal Affect, Normal Mood - Skin Skin Exam: Dry, Intact Assessment and Plan (1) Diabetes type 2, uncontrolled Assessment & Plan: followed by Endo Status: Acute (2) Malignant hypertension Assessment & Plan: sometimies up, sometimes down. still very labile, will ad 2 meds. Status: Acute (3) Elevated serum creatinine Assessment & Plan: will change to CKD Status: Acute (4) SunDown syndrome Assessment & Plan: unchanged from before Status: Acute (5) CVA (cerebral vascular accident) Assessment & Plan: unchanged, may benefit from PT Status: Acute (6) Confusion Status: Acute - Assessment and Plan (Free Text) Assessment: Referred to CM: if pt consents, pls refer to Jasmina Jacobs in that order. If not, it is at her discretion where she wants to go but I will not follow her.
--- NOTE | 2017-03-06 00:43 | PN ---
DATE: SUBJECTIVE: The patient seen. The patient more alert, verbal, still appears to have forgetfulness and confusion. The patient is awaiting to go for subacute rehab. Psych-hinojosa, she is manageable, but the patient has a need to have lot of help at home. electronics worker is trying to contact the family member. She said she has not been in contact with the family for long time. Claims she has 2 brothers in [place]. The patient also has a son in [place] and a daughter in [place]. The patient is off psych meds, but has off and on periods of confusion. Her blood sugar levels seem to be better controlled, now is in the 200s. The random glucose is 126. The TSH third-generation is 14.90, free T4 is 126. The patient is followed by Dr. Bhat. The patient will need a lot of help at home, especially with her insulin management and the patient has periods of, seems to be possible vascular type dementia. VITAL SIGNS: Temperature 98.2, pulse rate is 84, blood pressure 163/74, respirations is 17, oxygen saturation 99%. REVIEW OF SYSTEMS: GENERAL: The patient is alert, verbal, forgetful, seen in her room. She said she was visited by her friend in her building yesterday. SKIN: No diaphoresis. HEENT: No headache. No dizziness. NECK: Supple. RESPIRATORY: No dyspnea. CARDIOVASCULAR: No chest pain. GASTROINTESTINAL: She is eating well. EXTREMITIES: Gait seems to be unsteady. MUSCULOSKELETAL: Feels weak. NEUROLOGIC: Alert and oriented x3 with periods of forgetfulness. GENITOURINARY: No urinary problems. MENTAL STATUS EXAMINATION: Elderly female, height is about 4'11", weighs 130 pounds. The patient is oriented x3, but seems to have off and on periods of forgetfulness. Speech is spontaneous. Affect is reactive. Mood is dysphoric. Thought process is forgetful. Thought content, the patient seems amenable to get help at home, also to go for subacute rehab, but social services director is trying to get some help and trying to contact her family. No overt paranoia. No hallucinations. No suicidal or homicidal ideation. Attention and memory seems to be limited. Insight and judgment limited. Impulse control is fair at this time. The patient has been followed by Dr. Rodriguez. The patient also had an MRI done recently because of change in mental status and showed the following result: Likely, subacute lacunar infarct in the right frontal lobe, no acute or subacute lobe or brain infarction, appropriate age-related neurodegenerative changes noted and I identified the bilateral lamina and basal ganglia chronic lacunar infarct noted. 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 PLAN AND RECOMMENDATION: The patient seen, medications reviewed. Continue present management. The patient will benefit from subacute rehab. We will keep her off psych meds for now. Continue treatment plan as outlined. electronics worker is trying to contact family member to assist the patient with her discharge planning. Dereck Ford MD
--- NOTE | 2017-03-06 02:23 | PN ---
DATE: ENDO FOLLOWUP NOTE LOCATION: Room 662. SUBJECTIVE: This is an 86-year-old female with recent uncontrolled type 2 insulin-requiring diabetes, now being followed closely for metabolic management. Her glycemic levels are fluctuating, but much improved at this time; although, again the viability of oral intake is quite prominent as per the nursing staff. Her glucose levels overnight ranged from 85-95 mg/dL. The latest glucose levels today have elevated, ranging from 214-293 mg/dL. The latest chemistry showed a BUN of 20, sodium 140, potassium 4.7, chloride 97, CO2 of 31, glucose 126, creatinine 1.5. So, at this time, we will continue the same basal and premixed insulin regimen to allow for dose deliberation and keep her on the Lantus given as 6 units subcutaneous at beside daily as given. We will continue her Novolin 70/30 given as a premixed insulin regimen at 30 units a.c. breakfast and 20 units a.c. dinner as ordered. We will continue the low-dose correction scale using regular insulin as ordered. As discussed with the social service manager, the patient actually has no close family member in [place] and the only ones that she knows are the two brothers, one who lives in [place] and we have no contact number for those family members there. As mentioned, would reinforce the fact that the patient would pose a very unsafe discharge considering her early dementia and frequent relapses of memory and forgetfulness as noted. Would highly recommend a fci placement if possible and/or any kind of dedicated intermodal truck driver facility care as allowed by her current insurance. Would obtain serial chemistries and supplement accordingly as needed. We will follow. Haley Bhat MD
[2017-03-06] MEDS ORDERED: Levothyroxine 88 MCG TAB PO SCH (04:35)
[2017-03-06] MEDS: Levothyroxine 125 MCG TAB PO SCH (06:41)
[2017-03-06] MEDS: (Novolin R) Insulin Human Regular 100 units/ml vial SC SCH ×4 (07:30→21:36)
[2017-03-06] MEDS: (Novolin 70/30) NPH/Regular 70/30 Units/ml 10 ml vial SC SCH ×2 (09:08→18:45)
[2017-03-06] MEDS: Calcium-Vit D 250 mg-125 Units Tab UD PO SCH ×2 (11:27→17:49)
[2017-03-06] MEDS ORDERED: (Novolog) Insulin Aspart, Recombinant 100 u/ml 10 ml vial SC STA (12:10)
[2017-03-06] MEDS: cefTRIAXone 2 GM in Sodium Chloride 0.9% 100 ML IVPB SCH (17:49)
--- NOTE | 2017-03-06 21:28 | CP.PCM.PN ---
Subjective - Date & Time of Evaluation Date of Evaluation: 03/06/17 Time of Evaluation: 21:27 - Subjective Subjective: Pt doing good, but BS remains labile. BP appears stabilizing but in the high 160s. titrating medication to balance out adverse reactions. So far, SW had not been able to get a hold of family members, and so pt remains an unsafe discharge to home where nobody can assist her with anything. A neighbor checks in on her from time to time but no permament arrrangement currently i place. Only option is for a [facility] to long-term placement in [place] for pt. Objective - Vital Signs/Intake and Output Vital Signs (last 24 hours): Temp Pulse Resp BP Pulse Ox 98.1 F 80 20 164/74 H 100 03/06/17 15:55 03/06/17 17:57 03/06/17 15:55 03/06/17 17:57 03/06/17 14:19 - Medications Medications: Current Medications Amlodipine Besylate (Norvasc) 5 mg PO QPM [facility] Last Admin: 03/06/17 17:50 Dose: 5 mg Aspirin (Aspirin Chewable) 81 mg PO DAILY [facility] Last Admin: 03/06/17 11:15 Dose: 81 mg Calcium/Vitamin D (Oscal-D 250 Mg-125 Units Tab) 2 tab PO BID [facility] Last Admin: 03/06/17 17:49 Dose: 2 tab Clopidogrel Bisulfate (Plavix) 75 mg PO DAILY [facility] Last Admin: 03/06/17 11:17 Dose: 75 mg Furosemide (Lasix) 20 mg PO DAILY [facility] Last Admin: 03/06/17 11:16 Dose: 20 mg Ceftriaxone Sodium 2 gm/ (Sodium Chloride) 100 mls @ 100 mls/hr IVPB Q24H [facility] Last Admin: 03/06/17 17:49 Dose: 100 mls/hr Insulin Human Isoph/Insulin Regular (Novolin 70/30 (70/30 Units/Ml) 10 Ml) 30 units SC ACB [facility] Last Admin: 03/06/17 09:08 Dose: 30 units Insulin Human Isoph/Insulin Regular (Novolin 70/30 (70/30 Units/Ml) 10 Ml) 20 units SC ACD [facility] Last Admin: 03/06/17 18:45 Dose: 20 units Insulin Human Regular (Novolin R) 0 unit SC ACHS [facility] PRN Reason: Protocol Last Admin: 03/06/17 17:50 Dose: Not Given Levothyroxine Sodium (Synthroid) 125 mcg PO DAILY@0630 [facility] Last Admin: 03/06/17 06:41 Dose: 125 mcg Losartan Potassium (Cozaar) 100 mg PO DAILY [facility] Last Admin: 03/06/17 11:16 Dose: 100 mg Rosuvastatin Calcium (Crestor) 2.5 mg PO HS [facility] Last Admin: 03/05/17 21:06 Dose: 2.5 mg - Labs Labs: 03/05/17 09:19 03/05/17 07:34 - Constitutional Appears: No Acute Distress - Head Exam Head Exam: NORMAL INSPECTION, NORMOCEPHALIC - Eye Exam Eye Exam: Normal appearance - ENT Exam ENT Exam: Mucous Membranes Moist, Normal Exam - Neck Exam Neck Exam: Full ROM, Normal Inspection - Respiratory Exam Respiratory Exam: Clear to Ausculation Bilateral, NORMAL BREATHING PATTERN - Cardiovascular Exam Cardiovascular Exam: REGULAR RHYTHM - GI/Abdominal Exam GI & Abdominal Exam: Soft, Normal Bowel Sounds - Rectal Exam Rectal Exam: Deferred - Exam Exam: NORMAL INSPECTION - Back Exam Back Exam: NORMAL INSPECTION - Neurological Exam Neurological Exam: Abnormal Gait (per PT, drifts to left) Neuro motor strength exam: Left Upper Extremity: 3, Right Upper Extremity: 3, Left Lower Extremity: 3, Right Lower Extremity: 3 - Psychiatric Exam Psychiatric exam: Flat Affect (often confused, odalis at night) - Skin Skin Exam: Dry, Intact, Normal Color, Warm Assessment and Plan (1) Diabetes type 2, uncontrolled Assessment & Plan: blood sugar very labile despite being in a strict environment with attempts of a diabetic serviing Status: Acute (2) Malignant hypertension Assessment & Plan: hwen emotioally stable, at the upper 150s or lower Status: Acute (3) Elevated serum creatinine Assessment & Plan: has moderate ckd, on losartan and will monitor. proteinuria minimal Status: Acute (4) SunDown syndrome Status: Resolved (5) CVA (cerebral vascular accident) Assessment & Plan: on preventive medications to prevent repeat episodes Status: Acute (6) Confusion Assessment & Plan: cause is resolved but problem remains Status: Resolved
[2017-03-06] MEDS: Rosuvastatin Calcium 2.5 mg Tab PO SCH (21:36)
--- NOTE | 2017-03-06 21:37 | PN ---
DATE: ENDOCRINOLOGY FOLLOWUP NOTE LOCATION: Room 656 at [facility]. SUBJECTIVE: This is an 86-year-old female with recent uncontrolled type 2 insulin requiring diabetes mellitus, followed closely for metabolic management. Her glycemic levels are fluctuating, but much improved at this time as noted. Her latest glucose level was over 500 at lunchtime today. We will continue the low dose . We will follow with you. Haley Bhat MD
[2017-03-07] MEDS: Levothyroxine 125 MCG TAB PO SCH (06:20)
[2017-03-07] MEDS: (Novolin R) Insulin Human Regular 100 units/ml vial SC SCH ×4 (08:12→21:45)
[2017-03-07] MEDS: (Novolin 70/30) NPH/Regular 70/30 Units/ml 10 ml vial SC SCH ×2 (08:21→16:55)
[2017-03-07] MEDS: Calcium-Vit D 250 mg-125 Units Tab UD PO SCH ×2 (09:25→17:28)
[2017-03-07] MEDS: cefTRIAXone 2 GM in Sodium Chloride 0.9% 100 ML IVPB SCH (17:28)
--- NOTE | 2017-03-07 17:33 | PN ---
SUBJECTIVE: The patient is seen. The patient today wants to go home, insisting that she can take care of herself alone. However, her blood sugar is still very labile, getting from low 50s to high 500s. The patient has not been cleared by Dr. Bhat. The patient is not safe to be discharged to home, especially as the patient is on insulin and cannot administer the insulin by herself. The patient has also periods of confusion. Today, she is still on close monitoring. We tried to give her Xanax, as the patient is very anxious and wants to go home, p.r.n. basis. OBJECTIVE: VITAL SIGNS: Temperature is 97.4, pulse rate is 84, blood pressure 152/75, respirations 20, oxygen saturation 96%. REVIEW OF SYSTEMS: GENERAL: The patient is alert, verbal, wants to go home, very anxious with one-to-one watch. SKIN: No diaphoresis. HEENT: No headache. No dizziness. NECK: Supple. RESPIRATORY: No dyspnea. CARDIOVASCULAR: No chest pain. GASTROINTESTINAL: Eating well. EXTREMITIES: Gait unsteady. MUSCULOSKELETAL: Feels weak. NEUROLOGIC: Alert and oriented x3, has periods of confusion at times. GENITOURINARY: No dysuria. LABORATORY DATA: On review of her labs, the patient's blood sugar is still very fluctuating. The patient is still having ups and downs of her blood sugar. MENTAL STATUS EXAMINATION: Elderly female, who looks stated age, oriented x3, forgetful at times. The patient is anxious to be discharged. Mood changes. Affect is reactive. The patient states that she lives by herself. The patient was supposed to go to subacute rehab at this time, but not medically cleared. I do agree that the patient needs the blood sugar to be better controlled, especially as there is very labile fluctuation of blood sugar and the patient needs monitoring. The patient said she will try to live with her brother who is in [place]. Thought process is coherent. Thought content, no psychosis. No suicidal or homicidal ideation. Attention and memory seems to be limited at times. Insight and judgment are fair. Impulse control is fair. IMPRESSION: History of delirium and metabolic encephalopathy secondary to uncontrolled blood sugar as well as possible vascular dementia. PLAN AND RECOMMENDATIONS: The patient is seen, medications reviewed, continue close monitoring for now. The patient is at fall risk. We will give her Xanax 0.25 mg p.o. b.i.d. p.r.n. for anxiety. The patient is still awaiting medical clearance, especially clearance from Dr. Bhat [place] [facility] [place] [facility] [place] but the patient needs to have blood sugar better controlled. The patient states she has been complaint with her diet, but her blood sugar is still very unstable and fluctuating. Dereck Ford MD
[2017-03-07] MEDS: Rosuvastatin Calcium 2.5 mg Tab PO SCH (21:48)
--- NOTE | 2017-03-08 00:21 | PN ---
ENDO FOLLOWUP NOTE LOCATION: Room 655. SUBJECTIVE: This is an 86-year-old female with recent uncontrolled type 2 insulin-requiring diabetes presenting with extremes of glycemic fluctuation and is now being followed closely for metabolic management. Her oral intake is quite variable at this time with supervening extremes of glycemic fluctuation as mentioned, and the glucose level today have ranged from 117 to 243 and 347 mg/dL. Her latest chemistries showed a BUN of 17, sodium 139, potassium 4.0, chloride 102, CO2 of 26, glucose 90 and creatinine 1.5. So, at this time, we will continue the same premixed insulin regimen as given with Novolin 70/30 given as 30 units a.c. breakfast and 20 units a.c. dinner as ordered. We will obtain serial chemistries and supplement accordingly as needed. We will follow. Haley Bhat MD
--- NOTE | 2017-03-08 00:40 | CP.PCM.PN ---
Subjective - Date & Time of Evaluation Date of Evaluation: 03/07/17 Time of Evaluation: 19:20 - Subjective Subjective: Pt was attempting to leave to go home today at 530 am, apparently confused bec she hadn ot slept. Another pt wwchrissy put in her room which disturbed pt and thus she could not sleep. Pt started exhibiting behavioral issues, got dressed and was tying to go home. Nurse was attempting to redirect pt's attention but would not be dissuaded. Orfered a sedative to allow pt to relax and get some sleep but also advised nurse on staff to let him know.ll Objective - Vital Signs/Intake and Output Vital Signs (last 24 hours): Temp Pulse Resp BP Pulse Ox 97.8 F 88 20 160/70 H 96 03/07/17 15:25 03/07/17 15:25 03/07/17 15:25 03/07/17 15:25 03/07/17 15:25 Intake and Output: 03/07/17 03/08/17 18:59 06:59 Intake Total 240 Balance 240 - Medications Medications: Current Medications Alprazolam (Xanax) 0.25 mg PO BID PRN PRN Reason: Anxiety Stop: 03/14/17 12:31 Amlodipine Besylate (Norvasc) 5 mg PO QPM [facility] Last Admin: 03/07/17 17:28 Dose: 5 mg Aspirin (Aspirin Chewable) 81 mg PO DAILY [facility] Last Admin: 03/07/17 09:24 Dose: 81 mg Calcium/Vitamin D (Oscal-D 250 Mg-125 Units Tab) 2 tab PO BID [facility] Last Admin: 03/07/17 17:28 Dose: 2 tab Clonidine HCl (Catapres Tts1 0.1 Mg/24 Hr) 1 patch TD Q7D@1000 [facility] Last Admin: 03/07/17 10:17 Dose: 1 patch Clopidogrel Bisulfate (Plavix) 75 mg PO DAILY [facility] Last Admin: 03/07/17 09:24 Dose: 75 mg Furosemide (Lasix) 20 mg PO DAILY [facility] Last Admin: 03/07/17 09:24 Dose: 20 mg Ceftriaxone Sodium 2 gm/ (Sodium Chloride) 100 mls @ 100 mls/hr IVPB Q24H [facility] Last Admin: 03/07/17 17:28 Dose: 100 mls/hr Insulin Human Isoph/Insulin Regular (Novolin 70/30 (70/30 Units/Ml) 10 Ml) 30 units SC ACB [facility] Last Admin: 03/07/17 08:21 Dose: 30 units Insulin Human Isoph/Insulin Regular (Novolin 70/30 (70/30 Units/Ml) 10 Ml) 20 units SC ACD [facility] Last Admin: 03/07/17 16:55 Dose: 20 units Insulin Human Regular (Novolin R) 0 unit SC ACHS [facility] PRN Reason: Protocol Last Admin: 03/07/17 21:45 Dose: Not Given Levothyroxine Sodium (Synthroid) 125 mcg PO DAILY@0630 [facility] Last Admin: 03/07/17 06:20 Dose: 125 mcg Losartan Potassium (Cozaar) 100 mg PO DAILY [facility] Last Admin: 03/07/17 09:24 Dose: 100 mg Rosuvastatin Calcium (Crestor) 2.5 mg PO HS [facility] Last Admin: 03/07/17 21:48 Dose: Not Given - Labs Labs: 03/05/17 09:19 03/05/17 07:34 - Constitutional Appears: No Acute Distress - Head Exam Head Exam: ATRAUMATIC, NORMAL INSPECTION, NORMOCEPHALIC - Eye Exam Eye Exam: Normal appearance Pupil Exam: NORMAL ACCOMODATION - ENT Exam ENT Exam: Normal Exam - Neck Exam Neck Exam: Normal Inspection - Respiratory Exam Respiratory Exam: Clear to Ausculation Bilateral, NORMAL BREATHING PATTERN - Cardiovascular Exam Cardiovascular Exam: REGULAR RHYTHM - GI/Abdominal Exam GI & Abdominal Exam: Normal Bowel Sounds - Rectal Exam Rectal Exam: Deferred - Exam Exam: NORMAL INSPECTION - Extremities Exam Extremities Exam: Full ROM, Normal Capillary Refill, Normal Inspection - Back Exam Back Exam: NORMAL INSPECTION - Neurological Exam Neurological Exam: Abnormal Gait, Alert, Awake, CN II-XII Intact Neuro motor strength exam: Left Upper Extremity: 4, Right Upper Extremity: 4, Left Lower Extremity: 3, Right Lower Extremity: 3 - Psychiatric Exam Psychiatric exam: Normal Affect, Normal Mood - Skin Skin Exam: Dry, Intact, Normal Color, Warm Assessment and Plan (1) Diabetes type 2, uncontrolled Assessment & Plan: titrating insulin regimen Status: Chronic (2) Malignant hypertension Assessment & Plan: going down and stabilising Status: Chronic (3) Elevated serum creatinine Assessment & Plan: as a sign of chronic kidney disease, moderate Status: Chronic (4) CVA (cerebral vascular accident) Assessment & Plan: subacute to remote, on ASA and anticoagulants Status: Chronic
[2017-03-08] MEDS: Levothyroxine 125 MCG TAB PO SCH (06:31)
[2017-03-08] MEDS: (Novolin R) Insulin Human Regular 100 units/ml vial SC SCH ×3 (07:23→17:18)
[2017-03-08] MEDS: (Novolin 70/30) NPH/Regular 70/30 Units/ml 10 ml vial SC SCH ×2 (08:14→17:30)
[2017-03-08] MEDS: Calcium-Vit D 250 mg-125 Units Tab UD PO SCH ×2 (09:27→17:33)
--- NOTE | 2017-03-08 13:54 | CP.PCM.DIS ---
Provider - Provider Date of Admission: 02/27/17 16:37 Attending physician: Marc Song MD Primary care physician: Dr. Haley Bhat Consults: Dr. Haley Rodriguez Time Spent in preparation of Discharge (in minutes): 90 Diagnosis - Discharge Diagnosis (1) Diabetes type 2, uncontrolled Status: Chronic (2) Malignant hypertension Status: Chronic (3) Elevated serum creatinine Status: Chronic (4) CVA (cerebral vascular accident) Status: Chronic Hospital Course - Lab Results Lab Results: Micro Results 03/03/17 Unknown Urine,Catheterized Urine Culture - Final No Growth (<1,000 CFU/ML) 03/02/17 07:39 Naris MRSA Culture - Final MRSA NOT DETECTED 02/28/17 06:00 Nose MRSA Culture (Admit) - Final MRSA NOT DETECTED Most Recent Lab Values WBC 11.6 K/uL (4.8-10.8) H 03/05/17 09:19 RBC 3.99 Mil/uL (3.80-5.20) 03/05/17 09:19 Hgb 12.4 g/dL (11.0-16.0) 03/05/17 09:19 Hct 38.9 % (34.0-47.0) 03/05/17 09:19 MCV 97.4 fL (81.0-99.0) 03/05/17 09:19 MCH 31.0 pg (27.0-31.0) 03/05/17 09:19 MCHC 31.9 g/dL (33.0-37.0) L 03/05/17 09:19 RDW 14.3 % (11.5-14.5) 03/05/17 09:19 Plt Count 316 K/uL (130-400) 03/05/17 09:19 MPV 11.1 fL (7.2-11.7) 03/05/17 09:19 Neut % (Auto) 66.5 % (50.0-75.0) 03/05/17 09:19 Lymph % (Auto) 22.8 % (20.0-40.0) 03/05/17 09:19 [place] % (Auto) 8.6 % (0.0-10.0) 03/05/17 09:19 Eos % (Auto) 1.5 % (0.0-4.0) 03/05/17 09:19 Baso % (Auto) 0.6 % (0.0-2.0) 03/05/17 09:19 Neut # 7.7 K/uL (1.8-7.0) H 03/05/17 09:19 Lymph # 2.6 K/uL (1.0-4.3) 03/05/17 09:19 [place] # 1.0 K/uL (0.0-0.8) H 03/05/17 09:19 Eos # 0.2 K/uL (0.0-0.7) 03/05/17 09:19 Baso # 0.1 K/uL (0.0-0.2) 03/05/17 09:19 VBG pH 7.32 (7.32-7.43) 02/27/17 14:30 VBG pCO2 35 mmHg (40-60) L 02/27/17 14:30 VBG Total CO2 19.1 mmol/L (22-28) L 02/27/17 14:30 VBG O2 Sat (Calc) 97.9 % (40-65) H 02/27/17 14:30 VBG Base Excess -7.3 mmol/L (0.0-2.0) L 02/27/17 14:30 VBG Potassium 3.0 mmol/L (3.6-5.2) L 02/27/17 14:30 Sodium 144.0 mmol/l (132-148) 02/27/17 14:30 Chloride 111.0 mmol/L (98-107) H 02/27/17 14:30 Glucose 467 mg/dl (65-105) H* 02/27/17 14:30 Lactate 1.1 mmol/L (0.7-2.1) 02/27/17 14:30 Crit Value Called To Dr. acosta 02/27/17 14:30 Crit Value Called By Vladimir barba 02/27/17 14:30 Crit Value Read Back Y 02/27/17 14:30 Blood Gas Notified Time 1435 02/27/17 14:30 Sodium 140 mmol/L (132-148) 03/05/17 07:34 Potassium 4.7 mmol/L (3.6-5.2) 03/05/17 07:34 Chloride 97 mmol/L (98-107) L 03/05/17 07:34 Carbon Dioxide 31 mmol/L (22-30) H 03/05/17 07:34 Anion Gap 17 (10-20) 03/05/17 07:34 BUN 20 mg/dL (7-17) H 03/05/17 07:34 Creatinine 1.5 MG/DL (0.7-1.2) H 03/05/17 07:34 Est GFR ( Amer) 40 03/05/17 07:34 Est GFR (Non-Af Amer) 33 03/05/17 07:34 POC Glucose (mg/dL) 194 mg/dL (65-110) H 03/08/17 11:36 Random Glucose 126 mg/dL (65-105) H 03/05/17 07:34 Hemoglobin A1c 12.4 % (4.2-6.5) H 02/27/17 21:02 Serum Osmolality 317 mosm/kg (272-300) H 02/27/17 14:42 Lactic Acid 1.0 mmol/L (0.7-2.1) 02/27/17 21:02 Calcium 9.9 mg/dl (8.6-10.4) 03/05/17 07:34 Phosphorus 3.0 mg/dL (2.5-4.5) 02/27/17 21:02 Magnesium 2.0 mg/dL (1.6-2.3) 03/01/17 06:47 Total Bilirubin 0.4 mg/dL (0.2-1.3) 03/02/17 06:48 AST 26 U/L (14-36) 03/02/17 06:48 ALT 24 U/L (9-52) 03/02/17 06:48 Alkaline Phosphatase 96 U/L (38-126) 03/02/17 06:48 Total Creatine Kinase 119 U/L (30-135) 02/27/17 14:24 CK-MB (Mass) 3.62 ng/mL (0.0-3.38) H 02/27/17 14:24 Troponin I < 0.0120 ng/mL (0.00-0.120) 02/27/17 14:24 NT-Pro-B Natriuret Pep 791 pg/mL (0-900) 03/04/17 06:39 Total Protein 6.8 g/dL (6.3-8.3) 03/02/17 06:48 Albumin 3.7 g/dL (3.5-5.0) 03/02/17 06:48 Globulin 3.1 gm/dL (2.2-3.9) 03/02/17 06:48 Albumin/Globulin Ratio 1.2 (1.0-2.1) 03/02/17 06:48 Triglycerides 172 mg/dL (0-149) H 03/01/17 06:47 Cholesterol 178 mg/dL (0-199) 03/01/17 06:47 LDL Cholesterol Direct 109 mg/dL (0-129) 03/01/17 06:47 HDL Cholesterol 56 mg/dL (30-70) 03/01/17 06:47 Free T4 1.26 ng/dL (0.78-2.19) 03/05/17 07:34 Thyroxine (T4) 4.92 ug/dL (5.5-11.0) L 03/01/17 06:47 TSH 3rd Generation 14.90 mIU/L (0.46-4.68) H 03/05/17 07:34 Venous Blood Potassium 3.0 mmol/L (3.6-5.2) L 02/27/17 14:30 Urine Color Yellow (YELLOW) 03/03/17 18:49 Urine Clarity Hazy (Clear) 03/03/17 18:49 Urine pH 5.0 (5.0-8.0) 03/03/17 18:49 Ur Specific [place] 1.009 (1.003-1.030) 03/03/17 18:49 Urine Protein 2+ mg/dL (NEGATIVE) H 03/03/17 18:49 Urine Glucose (UA) 2+ mg/dL (Normal) H 03/03/17 18:49 Urine Ketones Negative mg/dL (NEGATIVE) 03/03/17 18:49 Urine Blood Trace (NEGATIVE) H 03/03/17 18:49 Urine Nitrate Negative (NEGATIVE) 03/03/17 18:49 Urine Bilirubin Negative (NEGATIVE) 03/03/17 18:49 Urine Urobilinogen Normal mg/dL (0.2-1.0) 08/21/17 18:49 Ur Leukocyte Esterase Neg [place]/uL (Negative) 03/03/17 18:49 Urine WBC (Auto) 1 /hpf (0-5) 03/03/17 18:49 Urine RBC (Auto) < 1 /hpf (0-3) 03/03/17 18:49 Ur Squamous Epith Cells < 1 /hpf (0-5) 03/03/17 18:49 Amorphous Sediment Few /ul (<OCC) H 03/03/17 18:49 Urine Bacteria Occ (<OCC) H 03/03/17 18:49 Serum Ketones Negative (NEGATIVE) 02/27/17 14:24 - Hospital Course Hospital Course: Pt admitted on Endocrinology's recommendation on finding of increased BS which pt was unaware of. Ptdid exhibit signs of increased confusion per Endo. Subsequent testing at ER and later revealed BS> 400s which was addressed at ER. I was initally unaware of the original confusion until notified by Endo's notes , and subsequent testing showed pt had sfuffered 4 areas of CVA that pt is unable to verify as happening via symtpoms. Had been attempting to reach contact on chart or some other family member to notify re patient's condition but unable to reach anyone, and pt unable to recall her daughter's or son's number, and neither had called searching for their mother. > In the meantime, pt was accepted at [facility] and since pt was stable and life threatening condnition had been controlled, ok'd discharge to [facility] sub-acute rehab. 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 P Discharge Exam - Head Exam Head Exam: NORMAL INSPECTION, NORMOCEPHALIC - Eye Exam Eye Exam: Normal appearance Pupil Exam: NORMAL ACCOMODATION - ENT Exam ENT Exam: Mucous Membranes Moist, Normal Exam - Neck Exam Neck exam: Normal Inspection - Respiratory Exam Respiratory Exam: Clear to PA & Lateral, NORMAL BREATHING PATTERN - Cardiovascular Exam Cardiovascular Exam: REGULAR RHYTHM - GI/Abdominal Exam GI & Abdominal Exam: Normal Bowel Sounds, Unremarkable - Rectal Exam Rectal Exam: Deferred - Extremities Exam Extremities exam: normal inspection - Back Exam Back exam: NORMAL INSPECTION - Neurological Exam Neurological exam: Abnormal Gait, Alert, CN II-XII Intact, Oriented x3, Reflexes Normal - Psychiatric Exam Psychiatric exam: Normal Affect, Normal Mood - Skin Skin Exam: Dry, Intact, Normal Color, Warm Discharge Plan - Discharge Medications Prescriptions: Losartan [Cozaar] 100 mg PO DAILY #90 tab Rosuvastatin Calcium 2.5 [Crestor] 2.5 mg PO HS #90 tab amLODIPine [Norvasc] 2.5 mg PO QPM #90 tab Levothyroxine [Synthroid] 125 mcg PO DAILY@0630 #90 tab - Follow Up Plan Condition: STABLE Disposition: REHAB FACILITY/REHAB UNIT Patient education suggested?: Yes Instructions: Levothyroxine (By mouth), Amlodipine (By mouth), Losartan (By mouth), Rosuvastatin (By mouth), Hypertension (DC), Diabetic Hyperglycemia (DC) , Stroke (DC) Additional Instructions: instructions to [facility] 1. Pls admit pt to Dr. Sony Colindres and call him at his cell number when pt arrives AFTER you do evaluation of patient and done a nursing physical exam 2. pls send for the following blood work /tests inthe morning: cbc with diff cmp [id number] fasting lipid profile thyroid panel magnesium phosphorus urinalysis urine microalbumin/creatinine ratio, random sample consult dr. adrien velez for psych follow up obtain an ekg in the am 3. await rx for alprazolam--i will send after you call 4. if any family member or friend calls, pls get their contactd number and verify by calling the number BEFORE THEY LEAVE THE FACILITY. Clinical Quality Measures - CQM - Stroke Antithrombotic Prescribed: Yes Anticoagulation Prescribed for Atrial Flutter, Atrial Fibrillation and History of:: Yes Statin prescribed: Yes - CQM - VTE Did patient receive overlap therapy during hosptialization?: Yes
[2017-03-08 15:55] VITALS: BP 149/72; PULSE 86; RESP 20; TEMP 98; O2SAT 96
[2017-03-08] MEDS ORDERED: Pneumococcal 23-Valent Vaccine IM ONE (16:28)
--- NOTE | 2017-03-08 19:04 | PN ---
DATE: 03/08/2017 SUBJECTIVE: The patient is seen. The patient has been cleared by medically and will be going to [facility] for subacute rehabilitation. The patient still wants to go home. Her blood sugar has been more stable. The patient has been cleared by the supervisor slate splitting. PHYSICAL EXAMINATION: VITAL SIGNS: Temperature is 98.3, pulse is 85, blood pressure 148/54, respirations 18, oxygen saturation is 98% REVIEW OF SYSTEMS: GENERAL: The patient is alert, verbal, with periods of confusion. The patient still need constant monitoring. The patient states that she wants to go home. SKIN: No diaphoresis. HEENT: No headache. No dizziness. NECK: Supple. RESPIRATORY: No dyspnea. CARDIOVASCULAR: No chest pain. GASTROINTESTINAL: The patient is eating fairly well. No abdominal pain. No nausea or vomiting. EXTREMITIES: Gait is unsteady with tremors. MUSCULOSKELETAL: Feels weak. NEUROLOGIC: Alert with periods of confusion. GENITOURINARY: No dysuria. MENTAL STATUS EXAMINATION: This is an elderly female, who looks stated age. Oriented x3, but with periods of carefulness. Speech is spontaneous. Affect is reactive. Mood is dysphoric. Thought process confused off and on. Thought content; the patient still wants to go home. Thought content; no overt psychosis. No suicidal or homicidal ideation. Attention and memory seem to be fair. Insight and judgment limited. Impulse control is fair at this time. IMPRESSION: History of delirium and metabolic encephalopathy secondary to uncontrolled blood sugar as well as possible vascular dementia, improving. PLAN AND RECOMMENDATIONS: The patient is seen, medications reviewed. Continue present management. The patient has been cleared to go to [facility] facility rehab. She may continue with Xanax p.r.n. as ordered. The patient also may need to be placed in the rehab close to nursing station for close monitoring. Dereck Ford MD
--- NOTE | 2017-03-08 23:13 | PN ---
ENDO FOLLOWUP NOTE LOCATION: Room 655. SUBJECTIVE: This is an 86-year-old female with recent uncontrolled type 2 insulin-requiring diabetes, now being followed closely for metabolic management. Her glycemic levels are fluctuating, but much improved at this time, and the latest glucose levels have ranged from 92 to 152 and 194 mg/dL. Her latest chemistry showed the BUN of 21, sodium 140, potassium 4.7, chloride 97, CO2 of 31, glucose 126, and creatinine 1.5. So, at this time, we will continue the same premixed insulin regimen with Novolin 70/30 given as 30 units a.c. breakfast and 20 units a,c. dinner as ordered. We will titrate incrementally as indicated to optimize metabolic control. We will follow and advise accordingly. She is scheduled for transfer to the [facility] for subacute care. We will follow and advise accordingly. Haley Bhat MD
== END 2017-03-08 20:20 | DRG 637 ==
LOC: C.ER 13:18 → C.9E 16:37 → C.9I 23:01 → C.6T 03-02 11:49
PROVIDERS: ADMIT Family Medicine; ATTEND Family Medicine
DX: E11.00 Type 2 diabetes mellitus with hyperosmolarity without nonketotic hyperglycemic-hyperosmolar coma (NKHHC) (principal); G93.41 Metabolic encephalopathy; F01.51 Vascular dementia, unspecified severity, with behavioral disturbance; E86.0 Dehydration; E11.22 Type 2 diabetes mellitus with diabetic chronic kidney disease; F05 Delirium due to known physiological condition; Z79.4 Long term (current) use of insulin; Z91.83 Wandering in diseases classified elsewhere; E78.5 Hyperlipidemia, unspecified; E03.9 Hypothyroidism, unspecified; M81.0 Age-related osteoporosis without current pathological fracture; G47.10 Hypersomnia, unspecified; I12.9 Hypertensive chronic kidney disease with stage 1 through stage 4 chronic kidney disease, or unspecified chronic kidney disease; E11.65 Type 2 diabetes mellitus with hyperglycemia; N18.2 Chronic kidney disease, stage 2 (mild)